=== PATIENT | female | born 1965 | race Caucasian/White ===

== ENCOUNTER 2022-10-11 17:02 | Outpatient (CLI) | payer BC | END 2022-10-11 17:03 | disposition home or self-care (01) | LOC: CSHULT 17:02 | PROVIDERS: ATTEND Orthopaedic Surgery | DX: M79.89 Other specified soft tissue disorders (principal); R22.41 Localized swelling, mass and lump, right lower limb; M71.21 Synovial cyst of popliteal space [Baker], right knee ==

== ENCOUNTER 2023-02-12 14:59 | Inpatient (IN) | payer BC ==
[2023-02-12 15:53] LABS: #Eosinphils 0.1 10x3/uL (0.0-0.5); #Monocytes 1.1 10x3/uL (0.0-1.1); #Neutrophils 10.9 10x3/uL (1.5-8.4); %Basophils 0.2 % (0.0-2.0); %Eosinophils 0.9 % (0.0-6.0); %Lymphocytes 15.1 % (18.0-47.0); %Monocytes 7.7 % (0.0-10.0); %Neutrophils 75.3 % (40.0-75.0); Hemoglobin 8.8 g/dL (12.0-15.5); Mean Corpuscular HGB CONC 35.6 g/dL (32.0-36.0); Mean Corpuscular Hemoglobin 32.6 pg (27.0-33.0); Mean Corpuscular Volume 91.5 fl (81.6-98.3); Mean Platelet Volume 10.4 fl (7.4-10.4); Platelet Count 319 10x3/uL (150-450); RBC Distribution Width 14.6 % (11.5-14.5); White Blood Cell (WBC) Count 14.4 10x3/uL (3.5-10.5)
[2023-02-12 16:03] LABS: ALT (SGPT) 43 U/L (8-55); AST (SGOT) 48 U/L (5-34); Albumin 2.8 g/dL (3.5-5.0); Alkaline Phosphatase 126 U/L (40-110); Anion Gap 20 mmol/L (10-20); BUN (Urea Nitrogen) 26 mg/dL (9.8-20.1); Bilirubin, Total 2.5 mg/dL (0.2-1.2); Calc. Creatinine Clearance 0 mL/min (70-130); Calcium 8.7 mg/dL (7.8-10.44); Carbon Dioxide 25 mmol/L (22-29); Chloride 78 mmol/L (98-107); Estimated GFR 30; Globulin 2.8 g/dL (2.4-3.5); Glucose 158 mg/dL (70-105); Lipase 14 U/L (8-78); Magnesium 1.6 mg/dL (1.6-2.6); Potassium 3.9 mmol/L (3.5-5.1); Protein, Total 5.6 g/dL (6.0-8.3)
[2023-02-12 16:06] LABS: Sodium 119 mmol/L (136-145)
[2023-02-12 16:30] LABS: Acetaminophen Less than 10.0 mcg/mL (10.0-30.0); Alcohol Less than 10 mg/dL (Less than 10); Salicylate Less than 8.0 mg/dL (15.0-30.0)
[2023-02-12] MEDS ORDERED: NOREPINEPHRINE 8 MG/250 ML-D5W 250 ML ONE (17:39)
[2023-02-12] MEDS ORDERED: Lorazepam 2 MG/ML VIAL IM PRN (17:44)
[2023-02-12] MEDS ORDERED: Ondansetron PF 4 MG/2 ML Vial IVP PRN (17:44)
[2023-02-12] MEDS ORDERED: Lorazepam 1 MG TAB PO PRN (17:44)
[2023-02-12] MEDS ORDERED: Acetaminophen 325 MG TAB PO PRN (17:44)
[2023-02-12] MEDS ORDERED: Folic Acid 1 MG TAB PO SCH (18:15)
[2023-02-12] MEDS ORDERED: Multivit, Therapeutic 1 TAB PO SCH (18:15)
[2023-02-12] MEDS: Nicotine 14 MG PATCH TD SCH (18:56)
[2023-02-12] MEDS: Thiamine HCl 200 MG/2 ML VIAL SLOW IVP SCH (18:56)
[2023-02-12] MEDS: Lorazepam 1 MG TAB PO SCH ×2 (18:57→23:39)
[2023-02-12 20:17] LABS: Anion Gap 19 mmol/L (10-20); BUN (Urea Nitrogen) 24 mg/dL (9.8-20.1); Calc. Creatinine Clearance 49 mL/min (70-130); Calcium 8.5 mg/dL (7.8-10.44); Carbon Dioxide 23 mmol/L (22-29); Chloride 82 mmol/L (98-107); Estimated GFR 36; Glucose 171 mg/dL (70-105); Magnesium 1.6 mg/dL (1.6-2.6); Potassium 3.6 mmol/L (3.5-5.1); Sodium 120 mmol/L (136-145)
[2023-02-12] MEDS: Famotidine/PF 20 mg/2ml Vial SLOW IVP SCH (21:42)
[2023-02-12 23:36] LABS: Bilirubin 1+ (Negative); Blood, Urine Negative (Negative); Clarity Clear (Clear); Glucose, Urine (Dipstick) Normal (Negative); Ketone, Urine 5 mg/dL (Negative); Leukocyte 25 (Negative); Nitrite Negative (Negative); Protein, Urine (Dipstick) 15 mg/dl (Neg-Trace)
[2023-02-12 23:46] LABS: Amphetamine Not Detected (NotDetected); Barbiturates Screen Not Detected (NotDetected); Benzodiazepine Screen Not Detected (NotDetected); Cocaine Metabolite Screen Not Detected (NotDetected); Methadone Not Detected (NotDetected); Methamphetamine Not Detected (NotDetected); Opiate Screen Not Detected (NotDetected); Oxycodone Screen Not Detected (NotDetected); Phencyclidine (PCP) Not Detected (NotDetected); THC/Cannabinoid Screen Not Detected (NotDetected); Tricyclic Screen Not Detected (NotDetected)
[2023-02-12 23:53] LABS: CAUTI Indications for Culture Dysuria,urgency,freq; RBC/HPF 0-3 HPF (0-3)
[2023-02-12 23:54] LABS: Bacteria/HPF 1+ HPF (None Seen)
[2023-02-12 23:55] LABS: Anion Gap 17 mmol/L (10-20); BUN (Urea Nitrogen) 23 mg/dL (9.8-20.1); Calc. Creatinine Clearance 56 mL/min (70-130); Calcium 8.5 mg/dL (7.8-10.44); Carbon Dioxide 24 mmol/L (22-29); Chloride 82 mmol/L (98-107); Estimated GFR 42; Glucose 186 mg/dL (70-105); Potassium 3.2 mmol/L (3.5-5.1); Sodium 120 mmol/L (136-145); Urine Culture Reflex No No
[2023-02-13] MEDS ORDERED: Lactated Ringer's 1,000 ML IV SCH ×2 (02:30→09:00)
[2023-02-13] MEDS: Potassium Chloride 20 MEQ in Premix Bag 1 BAG IVPB SCH ×2 (02:47→04:57)
[2023-02-13] MEDS: NOREPINEPHRINE 8 MG/250 ML-D5W 250 ML IVPB SCH ×3 (03:29→17:46)
[2023-02-13 04:22] LABS: #Monocytes 1.5 10x3/uL (0.0-1.1); #Neutrophils 10.5 10x3/uL (1.5-8.4); %Basophils 0.3 % (0.0-2.0); %Eosinophils 0.3 % (0.0-6.0); %Lymphocytes 16.5 % (18.0-47.0); %Monocytes 10.1 % (0.0-10.0); %Neutrophils 71.5 % (40.0-75.0); Hemoglobin 7.6 g/dL (12.0-15.5); Mean Corpuscular HGB CONC 36.4 g/dL (32.0-36.0); Mean Corpuscular Hemoglobin 32.8 pg (27.0-33.0); Mean Corpuscular Volume 90.1 fl (81.6-98.3); Mean Platelet Volume 9.6 fl (7.4-10.4); Platelet Count 306 10x3/uL (150-450); RBC Distribution Width 14.7 % (11.5-14.5); Red Blood Cell (RBC) Count 2.32 10x6/uL (3.90-5.03); White Blood Cell (WBC) Count 14.6 10x3/uL (3.5-10.5)
[2023-02-13] MEDS ORDERED: VANCOMYCIN 1.75 GM/350 ML BAG IVPB SCH (04:30)
[2023-02-13 04:33] LABS: Anion Gap 15 mmol/L (10-20); BUN (Urea Nitrogen) 22 mg/dL (9.8-20.1); Calc. Creatinine Clearance 61 mL/min (70-130); Calcium 8.3 mg/dL (7.8-10.44); Carbon Dioxide 25 mmol/L (22-29); Chloride 83 mmol/L (98-107); Estimated GFR 47; Glucose 216 mg/dL (70-105); Potassium 3.4 mmol/L (3.5-5.1); Sodium 120 mmol/L (136-145)
[2023-02-13] MEDS: Cefepime 2 GM in Sodium Chloride 0.9% 100 ML IVPB SCH ×2 (04:51→17:06)
[2023-02-13] MEDS ORDERED: VANCOMYCIN 1.75 GM, Admixture Fee 1 EACH in Sodium Chloride 0.9% 500 ML IVPB SCH (05:30)
[2023-02-13] MEDS: Lorazepam 1 MG TAB PO SCH ×4 (05:59→23:46)
[2023-02-13] MEDS: Folic Acid 1 MG TAB PO SCH (08:00)
[2023-02-13] MEDS: Famotidine/PF 20 mg/2ml Vial SLOW IVP SCH ×2 (08:00→20:40)
[2023-02-13] MEDS: Multivit, Therapeutic 1 TAB PO SCH (08:01)
[2023-02-13 08:30] LABS: Anion Gap 15 mmol/L (10-20); BUN (Urea Nitrogen) 20 mg/dL (9.8-20.1); Calc. Creatinine Clearance 68 mL/min (70-130); Calcium 8.4 mg/dL (7.8-10.44); Carbon Dioxide 24 mmol/L (22-29); Chloride 85 mmol/L (98-107); Estimated GFR 53; Glucose 194 mg/dL (70-105); Potassium 3.9 mmol/L (3.5-5.1); Sodium 120 mmol/L (136-145)
[2023-02-13 09:12] LABS: ALT (SGPT) 40 U/L (8-55); AST (SGOT) 37 U/L (5-34); Albumin 2.6 g/dL (3.5-5.0); Alkaline Phosphatase 123 U/L (40-110); Bilirubin, Total 1.9 mg/dL (0.2-1.2); Globulin 2.6 g/dL (2.4-3.5); Magnesium 1.8 mg/dL (1.6-2.6); Protein, Total 5.2 g/dL (6.0-8.3)
[2023-02-13 09:16] LABS: Phosphorus 1.3 mg/dL (2.3-4.7)
[2023-02-13] MEDS ORDERED: Potassium Phosphate 30 MMOL in Sodium Chloride 0.9% 250 ML 250 ML IVPB SCH (10:00)
[2023-02-13 10:26] LABS: Iron 62 ug/dL (50-170); Iron Binding Capacity, Total 158 mcg/dL (265-497)
[2023-02-13 13:32] LABS: BUN (Urea Nitrogen) 18 mg/dL (9.8-20.1); Calc. Creatinine Clearance 78 mL/min (70-130); Calcium 8.2 mg/dL (7.8-10.44); Carbon Dioxide 24 mmol/L (22-29); Chloride 84 mmol/L (98-107); Estimated GFR 62; Potassium 4.1 mmol/L (3.5-5.1)
[2023-02-13 14:34] LABS: Anion Gap 14 mmol/L (10-20); Glucose 280 mg/dL (70-105)
[2023-02-13 14:42] LABS: Sodium 118 mmol/L (136-145)
[2023-02-13] MEDS ORDERED: Sodium Chloride 3% 500 ML IVPB SCH (15:30)
[2023-02-13 16:25] LABS: Anion Gap 16 mmol/L (10-20); BUN (Urea Nitrogen) 17 mg/dL (9.8-20.1); Calc. Creatinine Clearance 85 mL/min (70-130); Calcium 8.2 mg/dL (7.8-10.44); Carbon Dioxide 22 mmol/L (22-29); Chloride 85 mmol/L (98-107); Estimated GFR 69; Glucose 223 mg/dL (70-105); Potassium 4.4 mmol/L (3.5-5.1)
[2023-02-13 16:28] LABS: Sodium 119 mmol/L (136-145)
[2023-02-13] MEDS ORDERED: Lorazepam 1 MG TAB PO PRN (17:44)
[2023-02-13] MEDS: Nicotine 14 MG PATCH TD SCH (17:46)
[2023-02-13] MEDS: Thiamine HCl 200 MG/2 ML VIAL SLOW IVP SCH (17:48)
[2023-02-13 19:40] LABS: Anion Gap 15 mmol/L (10-20); BUN (Urea Nitrogen) 17 mg/dL (9.8-20.1); Calc. Creatinine Clearance 86 mL/min (70-130); Calcium 8.3 mg/dL (7.8-10.44); Carbon Dioxide 24 mmol/L (22-29); Chloride 86 mmol/L (98-107); Estimated GFR 70; Glucose 218 mg/dL (70-105); Potassium 4.1 mmol/L (3.5-5.1); Sodium 121 mmol/L (136-145)
[2023-02-13] MEDS: Vancomycin HCl 1 GM in Sodium Chloride 0.9% 250 ML 250 ML IVPB SCH (23:47)
[2023-02-14 01:10] LABS: Anion Gap 15 mmol/L (10-20); BUN (Urea Nitrogen) 15 mg/dL (9.8-20.1); Calc. Creatinine Clearance 94 mL/min (70-130); Calcium 8.3 mg/dL (7.8-10.44); Carbon Dioxide 23 mmol/L (22-29); Chloride 88 mmol/L (98-107); Estimated GFR 78; Glucose 176 mg/dL (70-105); Potassium 3.9 mmol/L (3.5-5.1); Sodium 122 mmol/L (136-145)
[2023-02-14 04:06] LABS: Hemoglobin 7.4 g/dL (12.0-15.5); Mean Corpuscular HGB CONC 35.7 g/dL (32.0-36.0); Mean Corpuscular Hemoglobin 32.5 pg (27.0-33.0); Mean Corpuscular Volume 90.8 fl (81.6-98.3); Mean Platelet Volume 9.1 fl (7.4-10.4); Platelet Count 302 10x3/uL (150-450); RBC Distribution Width 14.9 % (11.5-14.5); Red Blood Cell (RBC) Count 2.28 10x6/uL (3.90-5.03)
[2023-02-14 04:40] LABS: Anion Gap 14 mmol/L (10-20); BUN (Urea Nitrogen) 14 mg/dL (9.8-20.1); Calc. Creatinine Clearance 98 mL/min (70-130); Calcium 8.4 mg/dL (7.8-10.44); Carbon Dioxide 24 mmol/L (22-29); Chloride 88 mmol/L (98-107); Estimated GFR 82; Glucose 163 mg/dL (70-105); Magnesium 1.4 mg/dL (1.6-2.6); Phosphorus 2.2 mg/dL (2.3-4.7); Potassium 3.8 mmol/L (3.5-5.1); Sodium 122 mmol/L (136-145)
[2023-02-14] MEDS: Cefepime 2 GM in Sodium Chloride 0.9% 100 ML IVPB SCH ×2 (05:00→16:51)
[2023-02-14] MEDS: NOREPINEPHRINE 8 MG/250 ML-D5W 250 ML IVPB SCH ×2 (05:04→21:40)
[2023-02-14] MEDS: Lorazepam 1 MG TAB PO SCH ×2 (05:37→12:08)
[2023-02-14] MEDS ORDERED: VANCOMYCIN 1.25 GM, Admixture Fee 1 EACH in Sodium Chloride 0.9% 250 ML 250 ML IVPB SCH (06:00)
[2023-02-14 07:21] LABS: Anion Gap 13 mmol/L (10-20); BUN (Urea Nitrogen) 13 mg/dL (9.8-20.1); Calc. Creatinine Clearance 100 mL/min (70-130); Calcium 8.4 mg/dL (7.8-10.44); Carbon Dioxide 24 mmol/L (22-29); Chloride 89 mmol/L (98-107); Estimated GFR 84; Glucose 158 mg/dL (70-105); Potassium 3.8 mmol/L (3.5-5.1); Sodium 122 mmol/L (136-145)
[2023-02-14] MEDS ORDERED: Sodium Chloride 1 GM TAB PO SCH (10:00)
[2023-02-14] MEDS ORDERED: Multivit, Therapeutic 1 TAB ONE (10:01)
[2023-02-14] MEDS ORDERED: Dextrose 5% in Water 1,000 ML IV PRN (10:02)
[2023-02-14] MEDS ORDERED: Dextrose 50% Abboject 50 ML SYRINGE SLOW IVP PRN (10:02)
[2023-02-14] MEDS: Famotidine/PF 20 mg/2ml Vial SLOW IVP SCH ×2 (10:27→20:30)
[2023-02-14] MEDS: Folic Acid 1 MG TAB PO SCH (10:27)
[2023-02-14] MEDS: Multivit, Therapeutic 1 TAB PO SCH (10:28)
[2023-02-14] MEDS ORDERED: EPOETIN ALFA-EPBX (ESRD) 10,000 UNIT/ML VIAL SC SCH ×2 (10:30→12:00)
[2023-02-14] MEDS ORDERED: Magnesium 2 GM/50 ML(in water) 2 GM in Premix Bag 1 BAG IVPB SCH (10:30)
[2023-02-14] MEDS: HumaLOG 300 UNITS/3 ML VIAL SC PRN ×2 (11:20→20:29)
[2023-02-14] MEDS ORDERED: Polyethylene Glycol 3350 17 GM Packet PO PRN (12:07)
[2023-02-14] MEDS ORDERED: Docusate 100 MG CAP PO PRN (12:07)
[2023-02-14] MEDS ORDERED: Sodium Phosphate 15 MMOL in Sodium Chloride 0.9% 250 ML 250 ML IVPB SCH (13:00)
[2023-02-14] MEDS: Sodium Chloride 1 GM TAB PO SCH ×2 (15:19→20:31)
[2023-02-14 16:47] LABS: Vancomycin, Trough 15.2 ug/mL
[2023-02-14] MEDS: Vancomycin HCl 1 GM in Sodium Chloride 0.9% 250 ML 250 ML IVPB SCH (16:51)
[2023-02-14] MEDS: Lorazepam 0.5 MG TAB PO SCH (17:25)
[2023-02-14] MEDS: Nicotine 14 MG PATCH TD SCH (17:37)
[2023-02-14] MEDS: Thiamine HCl 200 MG/2 ML VIAL SLOW IVP SCH (17:37)
[2023-02-14] MEDS ORDERED: Lorazepam 1 MG TAB PO PRN (17:44)
[2023-02-14 20:19] LABS: Potassium 3.7 mmol/L (3.5-5.1); Sodium 127 mmol/L (136-145)
[2023-02-15] MEDS: Lorazepam 0.5 MG TAB PO SCH ×4 (00:08→18:00)
[2023-02-15] MEDS ORDERED: Cefepime 2 GM VIAL ONE (05:00)
[2023-02-15] MEDS ORDERED: Sodium Chloride 0.9% 100 ML ONE (05:00)
[2023-02-15] MEDS: Cefepime 2 GM in Sodium Chloride 0.9% 100 ML IVPB SCH ×2 (05:01→17:26)
[2023-02-15] MEDS: Sodium Chloride 1 GM TAB PO SCH ×3 (09:03→20:17)
[2023-02-15] MEDS: Multivit, Therapeutic 1 TAB PO SCH (09:04)
[2023-02-15] MEDS: Famotidine/PF 20 mg/2ml Vial SLOW IVP SCH ×2 (09:04→20:17)
[2023-02-15] MEDS: Folic Acid 1 MG TAB PO SCH (09:04)
[2023-02-15 09:36] LABS: Anion Gap 15 mmol/L (10-20); BUN (Urea Nitrogen) 11 mg/dL (9.8-20.1); Calc. Creatinine Clearance 104 mL/min (70-130); Calcium 8.6 mg/dL (7.8-10.44); Carbon Dioxide 22 mmol/L (22-29); Chloride 97 mmol/L (98-107); Estimated GFR 85; Glucose 202 mg/dL (70-105); Potassium 4.1 mmol/L (3.5-5.1); Sodium 130 mmol/L (136-145)
[2023-02-15] MEDS ORDERED: Sodium Chloride 0.9% 250 ML 250 ML ONE (11:38)
[2023-02-15] MEDS: Vancomycin HCl 1 GM in Sodium Chloride 0.9% 250 ML 250 ML IVPB SCH (11:44)
[2023-02-15] MEDS: HumaLOG 300 UNITS/3 ML VIAL SC PRN ×2 (12:05→21:13)
[2023-02-15] MEDS: NOREPINEPHRINE 8 MG/250 ML-D5W 250 ML IVPB SCH (17:27)
[2023-02-15] MEDS ORDERED: Lorazepam 0.5 MG TAB PO PRN (17:44)
[2023-02-15] MEDS: Nicotine 14 MG PATCH TD SCH (18:16)
[2023-02-15] MEDS: Thiamine 100 MG TAB PO SCH (20:17)
[2023-02-16 03:48] LABS: Hemoglobin 7.9 g/dL (12.0-15.5); Mean Corpuscular HGB CONC 34.2 g/dL (32.0-36.0); Mean Corpuscular Hemoglobin 32.6 pg (27.0-33.0); Mean Corpuscular Volume 95.5 fl (81.6-98.3); Mean Platelet Volume 8.9 fl (7.4-10.4); Platelet Count 331 10x3/uL (150-450); RBC Distribution Width 16.4 % (11.5-14.5); Red Blood Cell (RBC) Count 2.42 10x6/uL (3.90-5.03); White Blood Cell (WBC) Count 8.1 10x3/uL (3.5-10.5)
[2023-02-16 03:56] LABS: Anion Gap 14 mmol/L (10-20); BUN (Urea Nitrogen) 12 mg/dL (9.8-20.1); Calc. Creatinine Clearance 102 mL/min (70-130); Calcium 8.4 mg/dL (7.8-10.44); Carbon Dioxide 22 mmol/L (22-29); Chloride 102 mmol/L (98-107); Estimated GFR 84; Glucose 191 mg/dL (70-105); Potassium 3.9 mmol/L (3.5-5.1); Sodium 134 mmol/L (136-145)
[2023-02-16] MEDS: HumaLOG 300 UNITS/3 ML VIAL SC PRN ×2 (04:08→16:11)
[2023-02-16] MEDS: Cefepime 2 GM in Sodium Chloride 0.9% 100 ML IVPB SCH ×2 (04:11→17:27)
[2023-02-16 04:20] LABS: Vancomycin, Trough 18.7 ug/mL
[2023-02-16] MEDS: Vancomycin HCl 1 GM in Sodium Chloride 0.9% 250 ML 250 ML IVPB SCH ×2 (04:47→23:59)
[2023-02-16] MEDS: Sodium Chloride 1 GM TAB PO SCH (08:54)
[2023-02-16] MEDS: Famotidine/PF 20 mg/2ml Vial SLOW IVP SCH ×2 (08:58→21:04)
[2023-02-16] MEDS: Multivit, Therapeutic 1 TAB PO SCH (08:59)
[2023-02-16] MEDS: Folic Acid 1 MG TAB PO SCH (10:01)
[2023-02-16] MEDS: NOREPINEPHRINE 8 MG/250 ML-D5W 250 ML IVPB SCH (15:48)
[2023-02-16] MEDS: Nicotine 14 MG PATCH TD SCH (17:27)
[2023-02-16] MEDS ORDERED: Thiamine HCl 200 MG/2 ML VIAL SLOW IVP SCH (21:00)
[2023-02-16] MEDS: Thiamine HCl 500 MG, Admixture Fee 1 EACH in Sodium Chloride 0.9% 100 ML IVPB SCH (21:04)
[2023-02-16] MEDS: Thiamine 100 MG TAB PO SCH (21:04)
[2023-02-17 03:33] LABS: Hemoglobin 7.3 g/dL (12.0-15.5); MDiff Complete? YES; Mean Corpuscular HGB CONC 33.2 g/dL (32.0-36.0); Mean Corpuscular Hemoglobin 32.3 pg (27.0-33.0); Mean Corpuscular Volume 97.3 fl (81.6-98.3); Mean Platelet Volume 8.7 fl (7.4-10.4); Platelet Count 271 10x3/uL (150-450); RBC Distribution Width 17.4 % (11.5-14.5); Red Blood Cell (RBC) Count 2.26 10x6/uL (3.90-5.03)
[2023-02-17 03:42] LABS: ALT (SGPT) 36 U/L (8-55); AST (SGOT) 38 U/L (5-34); Albumin 2.2 g/dL (3.5-5.0); Alkaline Phosphatase 100 U/L (40-110); Anion Gap 14 mmol/L (10-20); BUN (Urea Nitrogen) 16 mg/dL (9.8-20.1); Bilirubin, Total 0.9 mg/dL (0.2-1.2); Calc. Creatinine Clearance 107 mL/min (70-130); Calcium 8.2 mg/dL (7.8-10.44); Carbon Dioxide 21 mmol/L (22-29); Chloride 105 mmol/L (98-107); Estimated GFR 85; Globulin 2.6 g/dL (2.4-3.5); Glucose 128 mg/dL (70-105); Magnesium 1.4 mg/dL (1.6-2.6); Potassium 3.7 mmol/L (3.5-5.1); Protein, Total 4.8 g/dL (6.0-8.3); Sodium 136 mmol/L (136-145)
[2023-02-17] MEDS: Cefepime 2 GM in Sodium Chloride 0.9% 100 ML IVPB SCH (04:04)
[2023-02-17 04:08] LABS: Lymphocytes 34 % (21-51); Monocytes 10 % (0-10); Neutrophil 56 % (42-75)
[2023-02-17 04:11] LABS: Anisocytosis SLIGHT = 6-15 cells (100X) (0-5/hpf); Hypochromia SLIGHT = 6-15 cells (100X) (0-5/hpf); Macrocytosis SLIGHT = 6-15 cells (100X) (0-5/hpf); Platelet Morphology Comment Appears Adequate; Polychromasia SLIGHT = 2-3 cells (100X) (0-2/hpf)
[2023-02-17 04:12] LABS: Platelet Clumps SLIGHT
[2023-02-17] MEDS ORDERED: methylPREDNISolone 4 mg Tablet PO SCH (08:00)
[2023-02-17] MEDS: Magnesium 2 GM/50 ML(in water) 2 GM in Premix Bag 1 BAG IVPB SCH (08:02)
[2023-02-17] MEDS: Famotidine/PF 20 mg/2ml Vial SLOW IVP SCH ×2 (08:02→20:47)
[2023-02-17] MEDS: Multivit, Therapeutic 1 TAB PO SCH (08:03)
[2023-02-17] MEDS: Folic Acid 1 MG TAB PO SCH (08:03)
[2023-02-17] MEDS: Thiamine HCl 500 MG, Admixture Fee 1 EACH in Sodium Chloride 0.9% 100 ML IVPB SCH ×3 (08:49→20:47)
[2023-02-17] MEDS ORDERED: Electrolyte Replacement Protocol 1 EACH FS SCH (11:15)
[2023-02-17] MEDS: HumaLOG 300 UNITS/3 ML VIAL SC PRN ×2 (12:01→16:39)
[2023-02-17] MEDS: methylPREDNISolone 4 mg Tablet PO SCH ×2 (12:01→18:02)
[2023-02-17 16:10] VITALS: TEMP 97.8
[2023-02-17] MEDS: Nicotine 14 MG PATCH TD SCH (17:31)
[2023-02-18] MEDS: methylPREDNISolone 4 mg Tablet PO SCH ×4 (00:10→18:07)
[2023-02-18] MEDS: HumaLOG 300 UNITS/3 ML VIAL SC PRN ×4 (00:25→16:05)
[2023-02-18 03:56] LABS: #Monocytes 0.9 10x3/uL (0.0-1.1); #Neutrophils 7.6 10x3/uL (1.5-8.4); %Lymphocytes 15.2 % (18.0-47.0); %Monocytes 8.6 % (0.0-10.0); %Neutrophils 75.4 % (40.0-75.0); ALT (SGPT) 34 U/L (8-55); AST (SGOT) 33 U/L (5-34); Albumin 2.3 g/dL (3.5-5.0); Alkaline Phosphatase 101 U/L (40-110); Anion Gap 11 mmol/L (10-20); BUN (Urea Nitrogen) 20 mg/dL (9.8-20.1); Bilirubin, Total 0.7 mg/dL (0.2-1.2); Calc. Creatinine Clearance 113 mL/min (70-130); Calcium 8.3 mg/dL (7.8-10.44); Carbon Dioxide 21 mmol/L (22-29); Chloride 109 mmol/L (98-107); Estimated GFR 92; Globulin 2.7 g/dL (2.4-3.5); Glucose 174 mg/dL (70-105); Hemoglobin 7.1 g/dL (12.0-15.5); Magnesium 2.2 mg/dL (1.6-2.6); Mean Corpuscular HGB CONC 33.5 g/dL (32.0-36.0); Mean Corpuscular Volume 98.6 fl (81.6-98.3); Mean Platelet Volume 8.9 fl (7.4-10.4); Platelet Count 246 10x3/uL (150-450); Potassium 3.7 mmol/L (3.5-5.1); RBC Distribution Width 17.9 % (11.5-14.5); Red Blood Cell (RBC) Count 2.15 10x6/uL (3.90-5.03); Sodium 137 mmol/L (136-145); White Blood Cell (WBC) Count 10.1 10x3/uL (3.5-10.5)
[2023-02-18 04:08] LABS: Phosphorus 1.2 mg/dL (2.3-4.7)
[2023-02-18] MEDS ORDERED: Potassium Phosphate 30 MMOL in Sodium Chloride 0.9% 250 ML 250 ML IVPB SCH (04:30)
[2023-02-18] MEDS: Multivit, Therapeutic 1 TAB PO SCH (09:16)
[2023-02-18] MEDS: Famotidine/PF 20 mg/2ml Vial SLOW IVP SCH (09:17)
[2023-02-18] MEDS: Folic Acid 1 MG TAB PO SCH (09:18)
[2023-02-18] MEDS: Thiamine HCl 500 MG, Admixture Fee 1 EACH in Sodium Chloride 0.9% 100 ML IVPB SCH ×3 (09:18→21:00)
[2023-02-18] MEDS: PHOS-NAK 1 PKT PACK PO SCH ×3 (09:42→21:00)
[2023-02-18] MEDS: Nicotine 14 MG PATCH TD SCH (18:06)
[2023-02-19] MEDS: methylPREDNISolone 4 mg Tablet PO SCH ×3 (02:21→13:17)
[2023-02-19 03:39] LABS: #Neutrophils 8.6 10x3/uL (1.5-8.4); %Basophils 0.1 % (0.0-2.0); %Eosinophils 0.1 % (0.0-6.0); %Monocytes 8.1 % (0.0-10.0); Hemoglobin 7.8 g/dL (12.0-15.5); Mean Corpuscular HGB CONC 32.1 g/dL (32.0-36.0); Mean Corpuscular Hemoglobin 32.6 pg (27.0-33.0); Mean Corpuscular Volume 101.7 fl (81.6-98.3); Mean Platelet Volume 8.8 fl (7.4-10.4); Platelet Count 241 10x3/uL (150-450); RBC Distribution Width 18.4 % (11.5-14.5); Red Blood Cell (RBC) Count 2.39 10x6/uL (3.90-5.03); White Blood Cell (WBC) Count 12.1 10x3/uL (3.5-10.5)
[2023-02-19 03:52] LABS: ALT (SGPT) 36 U/L (8-55); AST (SGOT) 36 U/L (5-34); Albumin 2.5 g/dL (3.5-5.0); Alkaline Phosphatase 97 U/L (40-110); Anion Gap 11 mmol/L (10-20); BUN (Urea Nitrogen) 19 mg/dL (9.8-20.1); Bilirubin, Total 0.7 mg/dL (0.2-1.2); Calc. Creatinine Clearance 120 mL/min (70-130); Calcium 8.4 mg/dL (7.8-10.44); Carbon Dioxide 22 mmol/L (22-29); Chloride 110 mmol/L (98-107); Estimated GFR 98; Globulin 2.8 g/dL (2.4-3.5); Glucose 122 mg/dL (70-105); Magnesium 1.9 mg/dL (1.6-2.6); Phosphorus 2.9 mg/dL (2.3-4.7); Potassium 4.6 mmol/L (3.5-5.1); Protein, Total 5.3 g/dL (6.0-8.3); Sodium 138 mmol/L (136-145)
[2023-02-19 06:26] VITALS: BMI 33.7
[2023-02-19] MEDS ORDERED: Magnesium 2 GM/50 ML(in water) 2 GM in Premix Bag 1 BAG IVPB SCH (08:00)
[2023-02-19] MEDS: Folic Acid 1 MG TAB PO SCH (08:16)
[2023-02-19] MEDS: Multivit, Therapeutic 1 TAB PO SCH (08:17)
[2023-02-19] MEDS: PHOS-NAK 1 PKT PACK PO SCH ×2 (08:17→15:30)
[2023-02-19] MEDS: Thiamine HCl 500 MG, Admixture Fee 1 EACH in Sodium Chloride 0.9% 100 ML IVPB SCH ×2 (10:39→15:30)
[2023-02-19 10:43] VITALS: BP 154/101
[2023-02-19] MEDS: HumaLOG 300 UNITS/3 ML VIAL SC PRN (11:54)
== END 2023-02-19 16:00 | DRG 643 ==
LOC: CSHERS 14:59 → CSHIMCU 17:56
PROVIDERS: ADMIT Internal Medicine; ATTEND Family Medicine
PROC: 02HV33Z Insertion of Infusion Device into Superior Vena Cava, Percutaneous Approach (ICD-10-PCS; principal; 2023-02-12)
PROC: B548ZZA Ultrasonography of Superior Vena Cava, Guidance (ICD-10-PCS; 2023-02-12)
PROC: 3E033XZ Introduction of Vasopressor into Peripheral Vein, Percutaneous Approach (ICD-10-PCS; 2023-02-14)
PROC: 4A10X4Z Monitoring of Central Nervous Electrical Activity, External Approach (ICD-10-PCS; 2023-02-17)
DX: E27.40 Unspecified adrenocortical insufficiency (principal); G93.41 Metabolic encephalopathy; R57.1 Hypovolemic shock; E87.1 Hypo-osmolality and hyponatremia; N17.9 Acute kidney failure, unspecified; E44.1 Mild protein-calorie malnutrition; F17.210 Nicotine dependence, cigarettes, uncomplicated; E66.9 Obesity, unspecified; E83.42 Hypomagnesemia; D72.829 Elevated white blood cell count, unspecified; E87.6 Hypokalemia; F10.20 Alcohol dependence, uncomplicated; N18.30 Chronic kidney disease, stage 3 unspecified; I12.9 Hypertensive chronic kidney disease with stage 1 through stage 4 chronic kidney disease, or unspecified chronic kidney disease; D63.1 Anemia in chronic kidney disease; Z88.0 Allergy status to penicillin; Z79.84 Long term (current) use of oral hypoglycemic drugs; Z79.899 Other long term (current) drug therapy; Z98.890 Other specified postprocedural states; Z68.33 Body mass index [BMI] 33.0-33.9, adult
CPT/HCPCS: 36415; 36416; 36556; 70450; 70551; 71045; 76705; 80048; 80053; 80202; 80306; 80307; 81001; 82024; 82088; 82140; 82533; 82607; 82728; 83540; 83550; 83605; 83690; 83735; 83880; 83930; 83935; 84100; 84244; 84300; 84443; 84484; 85025; 85027; 87040; 87081; 87086; 93005; 93306; 94760; 94762; 95819; 95957; 96361; 96365; J0692; J1650; J1815; J2597; J3370; J3411; J3475; J3480; J3490; J7030; J7050; J7120; J7131; J7509; Q5105; S0028

== ENCOUNTER 2023-02-21 08:10 | Inpatient (IN) | payer BC ==
[2023-02-21] MEDS ORDERED: Ketorolac Tromethamine 30 MG/ML VIAL ONE (09:00)
[2023-02-21 10:00] LABS: ALT (SGPT) 38 U/L (8-55); AST (SGOT) 50 U/L (5-34); Acetaminophen Less than 10.0 mcg/mL (10.0-30.0); Albumin 2.8 g/dL (3.5-5.0); Alcohol Less than 10 mg/dL (Less than 10); Alkaline Phosphatase 93 U/L (40-110); Anion Gap 15 mmol/L (10-20); BUN (Urea Nitrogen) 15 mg/dL (9.8-20.1); Calc. Creatinine Clearance 0 mL/min (70-130); Calcium 8.7 mg/dL (7.8-10.44); Carbon Dioxide 18 mmol/L (22-29); Chloride 108 mmol/L (98-107); Estimated GFR 89; Globulin 2.6 g/dL (2.4-3.5); Glucose 99 mg/dL (70-105); Potassium 4.4 mmol/L (3.5-5.1); Protein, Total 5.4 g/dL (6.0-8.3); Salicylate Less than 8.0 mg/dL (15.0-30.0); Sodium 137 mmol/L (136-145)
[2023-02-21 10:43] LABS: #Eosinphils 0.1 10x3/uL (0.0-0.5); #Monocytes 0.7 10x3/uL (0.0-1.1); #Neutrophils 7.9 10x3/uL (1.5-8.4); %Basophils 0.2 % (0.0-2.0); %Eosinophils 0.8 % (0.0-6.0); %Monocytes 6.3 % (0.0-10.0); Hemoglobin 8.7 g/dL (12.0-15.5); Mean Corpuscular HGB CONC 31.5 g/dL (32.0-36.0); Mean Corpuscular Volume 104.5 fl (81.6-98.3); Mean Platelet Volume 9.1 fl (7.4-10.4); Platelet Count 196 10x3/uL (150-450); RBC Distribution Width 19.2 % (11.5-14.5); Red Blood Cell (RBC) Count 2.64 10x6/uL (3.90-5.03); White Blood Cell (WBC) Count 11.3 10x3/uL (3.5-10.5)
[2023-02-21] MEDS ORDERED: Morphine 4 MG/ML VIAL ONE (11:05)
[2023-02-21 12:06] LABS: Macrocytosis SLIGHT = 6-15 cells (100X) (0-5/hpf)
[2023-02-21 12:07] LABS: Hypochromia SLIGHT = 6-15 cells (100X) (0-5/hpf); Polychromasia SLIGHT = 2-3 cells (100X) (0-2/hpf)
[2023-02-21 12:08] LABS: Platelet Morphology Comment Appears Adequate
[2023-02-21] MEDS ORDERED: Guaifenesin DM 100-10/5 ML UDCUP PO PRN (12:12)
[2023-02-21] MEDS ORDERED: Senokot S 8.6-50 MG TAB PO PRN (12:12)
[2023-02-21] MEDS ORDERED: Ondansetron ODT 4 MG TAB PO PRN (12:12)
[2023-02-21] MEDS ORDERED: Calcium Carbonate 500 MG ChewTAB PO PRN (12:12)
[2023-02-21] MEDS ORDERED: Acetaminophen 325 MG TAB PO PRN (12:12)
[2023-02-21] MEDS ORDERED: Ondansetron PF 4 MG/2 ML Vial IVP PRN (12:12)
[2023-02-21] MEDS ORDERED: Nicotine 21 MG PATCH TD SCH (12:15)
[2023-02-21] MEDS ORDERED: Cyclobenzaprine 10 MG TAB PO PRN (13:00)
[2023-02-21] MEDS ORDERED: Dexamethasone 12 MG in Sodium Chloride 0.9% 50 ML IVPB SCH (13:00)
[2023-02-21] MEDS ORDERED: HYDROcodone/Acetaminophen 10/325 mg Tablet ONE (13:30)
[2023-02-21] MEDS ORDERED: Nicotine 21 MG PATCH ONE (13:39)
[2023-02-21] MEDS: HYDROcodone/Acetaminophen 10/325 mg Tablet PO PRN ×2 (13:50→20:10)
[2023-02-21] MEDS ORDERED: Iopamidol 370 76% 100 ML VIAL ONE (13:56)
[2023-02-21] MEDS ORDERED: Thiamine HCl 200 MG/2 ML VIAL IVPB SCH (15:00)
[2023-02-21] MEDS ORDERED: Ventolin HFA Inhaler 60 PUFF INHALER INH PRN (15:39)
[2023-02-21] MEDS ORDERED: Dexamethasone 20 MG/5 ML VIAL SLOW IVP SCH (15:45)
[2023-02-21] MEDS: Lactated Ringer's 1,000 ML IV SCH (16:51)
[2023-02-21] MEDS: Gabapentin 100 MG CAP PO SCH ×2 (16:51→20:12)
[2023-02-21] MEDS: PHOS-NAK 1 PKT PACK PO SCH ×2 (16:52→20:12)
[2023-02-21] MEDS ORDERED: Rosuvastatin 10 MG TAB PO SCH (21:00)
[2023-02-22] MEDS: Lactated Ringer's 1,000 ML IV SCH ×2 (01:05→12:58)
[2023-02-22 05:57] LABS: #Monocytes 0.3 10x3/uL (0.0-1.1); #Neutrophils 7.7 10x3/uL (1.5-8.4); %Lymphocytes 11.3 % (18.0-47.0); Hemoglobin 7.8 g/dL (12.0-15.5); Mean Corpuscular HGB CONC 31.6 g/dL (32.0-36.0); Mean Corpuscular Hemoglobin 32.6 pg (27.0-33.0); Mean Corpuscular Volume 103.3 fl (81.6-98.3); Mean Platelet Volume 9.2 fl (7.4-10.4); Platelet Count 186 10x3/uL (150-450); RBC Distribution Width 18.7 % (11.5-14.5); Red Blood Cell (RBC) Count 2.39 10x6/uL (3.90-5.03); White Blood Cell (WBC) Count 9.1 10x3/uL (3.5-10.5)
[2023-02-22 06:14] LABS: ALT (SGPT) 44 U/L (8-55); AST (SGOT) 46 U/L (5-34); Albumin 2.5 g/dL (3.5-5.0); Alkaline Phosphatase 91 U/L (40-110); Anion Gap 15 mmol/L (10-20); BUN (Urea Nitrogen) 13 mg/dL (9.8-20.1); Bilirubin, Total 0.8 mg/dL (0.2-1.2); Calc. Creatinine Clearance 124 mL/min (70-130); Calcium 8.6 mg/dL (7.8-10.44); Carbon Dioxide 17 mmol/L (22-29); Chloride 109 mmol/L (98-107); Estimated GFR 100; Globulin 2.7 g/dL (2.4-3.5); Potassium 4.6 mmol/L (3.5-5.1); Protein, Total 5.2 g/dL (6.0-8.3); Sodium 136 mmol/L (136-145)
[2023-02-22 06:16] LABS: Glucose 188 mg/dL (70-105)
[2023-02-22] MEDS: Multivit, Therapeutic 1 TAB PO SCH (08:25)
[2023-02-22] MEDS: Gabapentin 100 MG CAP PO SCH ×2 (08:25→14:50)
[2023-02-22] MEDS: PHOS-NAK 1 PKT PACK PO SCH ×3 (08:25→22:02)
[2023-02-22] MEDS: Ferrous Sulfate 325 MG TAB PO SCH (08:25)
[2023-02-22] MEDS: Thiamine 100 MG TAB PO SCH (08:25)
[2023-02-22] MEDS: Dexamethasone 4 MG TAB PO SCH (08:25)
[2023-02-22] MEDS: HYDROcodone/Acetaminophen 10/325 mg Tablet PO PRN ×2 (10:09→14:43)
[2023-02-22] MEDS ORDERED: Lorazepam 1 MG TAB PO PRN (10:35)
[2023-02-22] MEDS ORDERED: Electrolyte Replacement Protocol 1 EACH FS SCH ×2 (10:45→16:00)
[2023-02-22 14:31] LABS: Anion Gap 14 mmol/L (10-20); BUN (Urea Nitrogen) 13 mg/dL (9.8-20.1); Calc. Creatinine Clearance 114 mL/min (70-130); Calcium 8.5 mg/dL (7.8-10.44); Carbon Dioxide 18 mmol/L (22-29); Chloride 109 mmol/L (98-107); Estimated GFR 90; Glucose 155 mg/dL (70-105); Potassium 4.3 mmol/L (3.5-5.1); Sodium 137 mmol/L (136-145)
[2023-02-22] MEDS: Nicotine 14 MG PATCH TD PRN (14:56)
[2023-02-22] MEDS ORDERED: Gabapentin 300 MG CAP PO SCH (16:00)
[2023-02-22] MEDS ORDERED: Cyclobenzaprine 10 MG TAB PO SCH ×2 (16:00→21:00)
[2023-02-22] MEDS ORDERED: Magnesium 2 GM/50 ML(in water) 2 GM in Premix Bag 1 BAG IVPB SCH (16:45)
[2023-02-22] MEDS ORDERED: Cyanocobalamin (Vitamin B-12) 1,000 MCG TAB PO SCH (21:00)
[2023-02-22] MEDS: Senokot S 8.6-50 MG TAB PO SCH (22:01)
[2023-02-22] MEDS: Losartan 25 MG TAB PO SCH (22:02)
[2023-02-22] MEDS: Sodium Bicarbonate Tab 325 MG TAB PO SCH (22:02)
[2023-02-22] MEDS: Folic Acid 1 MG TAB PO SCH (22:02)
[2023-02-22] MEDS: traZODone HCl 50 MG TAB PO SCH (22:04)
[2023-02-22] MEDS: Cyclobenzaprine 10 MG TAB PO SCH (22:05)
[2023-02-23 06:28] LABS: Anion Gap 12 mmol/L (10-20); BUN (Urea Nitrogen) 12 mg/dL (9.8-20.1); Calc. Creatinine Clearance 126 mL/min (70-130); Calcium 8.3 mg/dL (7.8-10.44); Carbon Dioxide 20 mmol/L (22-29); Chloride 109 mmol/L (98-107); Estimated GFR 100; Glucose 140 mg/dL (70-105); Magnesium 2.1 mg/dL (1.6-2.6); Phosphorus 3.6 mg/dL (2.3-4.7); Potassium 4.4 mmol/L (3.5-5.1); Sodium 137 mmol/L (136-145)
[2023-02-23 07:04] LABS: #Monocytes 0.8 10x3/uL (0.0-1.1); %Basophils 0.1 % (0.0-2.0); %Eosinophils 0.1 % (0.0-6.0); %Monocytes 4.6 % (0.0-10.0); %Neutrophils 83.9 % (40.0-75.0); Hemoglobin 7.4 g/dL (12.0-15.5); Mean Corpuscular HGB CONC 31.8 g/dL (32.0-36.0); Mean Corpuscular Hemoglobin 32.3 pg (27.0-33.0); Mean Corpuscular Volume 101.7 fl (81.6-98.3); Mean Platelet Volume 9.3 fl (7.4-10.4); Platelet Count 151 10x3/uL (150-450); RBC Distribution Width 19.4 % (11.5-14.5); Red Blood Cell (RBC) Count 2.29 10x6/uL (3.90-5.03); White Blood Cell (WBC) Count 16.7 10x3/uL (3.5-10.5)
[2023-02-23 07:45] LABS: Anisocytosis SLIGHT = 6-15 cells (100X) (0-5/hpf); Hypochromia SLIGHT = 6-15 cells (100X) (0-5/hpf); Macrocytosis SLIGHT = 6-15 cells (100X) (0-5/hpf); Microcytosis SLIGHT = 6-15 cells (100X) (0-5/hpf)
[2023-02-23 07:46] LABS: Platelet Morphology Comment Appears Adequate
[2023-02-23] MEDS ORDERED: Gabapentin 300 MG CAP PO SCH (09:00)
[2023-02-23] MEDS: PHOS-NAK 1 PKT PACK PO SCH ×3 (09:10→20:26)
[2023-02-23] MEDS: Sodium Bicarbonate Tab 325 MG TAB PO SCH ×2 (09:11→20:27)
[2023-02-23] MEDS: Thiamine 100 MG TAB PO SCH (09:12)
[2023-02-23] MEDS: Losartan 25 MG TAB PO SCH ×2 (09:12→20:27)
[2023-02-23] MEDS: Senokot S 8.6-50 MG TAB PO SCH ×2 (09:12→21:39)
[2023-02-23] MEDS: Dexamethasone 4 MG TAB PO SCH (09:13)
[2023-02-23] MEDS: Cyclobenzaprine 10 MG TAB PO SCH ×3 (09:13→20:29)
[2023-02-23] MEDS: Multivit, Therapeutic 1 TAB PO SCH (09:13)
[2023-02-23] MEDS: Gabapentin 300 MG CAP PO SCH ×3 (09:14→20:27)
[2023-02-23] MEDS: Ferrous Sulfate 325 MG TAB PO SCH (09:15)
[2023-02-23 14:05] LABS: Platelet Count 158 10x3/uL (150-450)
[2023-02-23 14:11] LABS: Bilirubin Neg (Negative); Blood, Urine 250 (Negative); Clarity Clear (Clear); Glucose, Urine (Dipstick) Normal (Negative); Ketone, Urine Negative (Negative); Leukocyte 25 (Negative); Nitrite Negative (Negative); Protein, Urine (Dipstick) Negative (Neg-Trace); Specific Gravity, Urine 1.005 (1.005-1.030); Urobilinogen Normal mg/dL (Less than 2)
[2023-02-23 14:25] LABS: Bacteria/HPF 1+ HPF (None Seen); Oval Fat Bodies/HPF Rare HPF (None Seen); RBC/HPF 0-3 HPF (0-3); WBC/HPF 0-3 HPF (0-3); Yeast-Budding 1+ HPF (None Seen)
[2023-02-23] MEDS: Folic Acid 1 MG TAB PO SCH (20:28)
[2023-02-23] MEDS: traZODone HCl 50 MG TAB PO SCH (20:28)
[2023-02-24 05:22] LABS: #Monocytes 0.7 10x3/uL (0.0-1.1); #Neutrophils 10.8 10x3/uL (1.5-8.4); %Lymphocytes 12.9 % (18.0-47.0); %Monocytes 5.5 % (0.0-10.0); ALT (SGPT) 68 U/L (8-55); AST (SGOT) 185 U/L (5-34); Albumin 2.5 g/dL (3.5-5.0); Alkaline Phosphatase 81 U/L (40-110); Anion Gap 11 mmol/L (10-20); BUN (Urea Nitrogen) 12 mg/dL (9.8-20.1); Bilirubin, Total 0.8 mg/dL (0.2-1.2); Calc. Creatinine Clearance 126 mL/min (70-130); Calcium 8.7 mg/dL (7.8-10.44); Carbon Dioxide 24 mmol/L (22-29); Chloride 110 mmol/L (98-107); Estimated GFR 100; Globulin 2.5 g/dL (2.4-3.5); Glucose 152 mg/dL (70-105); Hemoglobin 7.7 g/dL (12.0-15.5); Mean Corpuscular HGB CONC 32.9 g/dL (32.0-36.0); Mean Corpuscular Hemoglobin 32.9 pg (27.0-33.0); Mean Platelet Volume 9.3 fl (7.4-10.4); Platelet Count 137 10x3/uL (150-450); Potassium 4.5 mmol/L (3.5-5.1); Red Blood Cell (RBC) Count 2.34 10x6/uL (3.90-5.03); Sodium 140 mmol/L (136-145); White Blood Cell (WBC) Count 13.4 10x3/uL (3.5-10.5)
[2023-02-24] MEDS ORDERED: Acetaminophen 325 MG TAB PO PRN (08:48)
[2023-02-24] MEDS: Dexamethasone 4 MG TAB PO SCH (09:15)
[2023-02-24] MEDS: Nicotine 14 MG PATCH TD PRN (09:15)
[2023-02-24] MEDS: Ferrous Sulfate 325 MG TAB PO SCH (09:15)
[2023-02-24] MEDS: Cyclobenzaprine 10 MG TAB PO SCH ×3 (09:16→20:53)
[2023-02-24] MEDS: Senokot S 8.6-50 MG TAB PO SCH ×2 (09:16→20:59)
[2023-02-24] MEDS: Losartan 25 MG TAB PO SCH ×2 (09:16→20:54)
[2023-02-24] MEDS: Multivit, Therapeutic 1 TAB PO SCH (09:17)
[2023-02-24] MEDS: Sodium Bicarbonate Tab 325 MG TAB PO SCH (09:17)
[2023-02-24] MEDS: PHOS-NAK 1 PKT PACK PO SCH ×3 (09:17→20:55)
[2023-02-24] MEDS: Gabapentin 300 MG CAP PO SCH ×3 (09:17→20:54)
[2023-02-24] MEDS: Thiamine 100 MG TAB PO SCH (09:17)
[2023-02-24] MEDS ORDERED: HYDROcodone/Acetaminophen 5/325 mg Tablet PO PRN (10:19)
[2023-02-24] MEDS: traZODone HCl 50 MG TAB PO SCH (20:54)
[2023-02-24] MEDS: Folic Acid 1 MG TAB PO SCH (20:54)
[2023-02-25] MEDS: Senokot S 8.6-50 MG TAB PO SCH ×3 (08:54→23:22)
[2023-02-25] MEDS: Nicotine 14 MG PATCH TD PRN (09:02)
[2023-02-25] MEDS: Gabapentin 300 MG CAP PO SCH ×3 (09:03→23:21)
[2023-02-25] MEDS: Multivit, Therapeutic 1 TAB PO SCH (09:03)
[2023-02-25] MEDS: Thiamine 100 MG TAB PO SCH (09:03)
[2023-02-25] MEDS: Dexamethasone 4 MG TAB PO SCH (09:04)
[2023-02-25] MEDS: Ferrous Sulfate 325 MG TAB PO SCH (09:05)
[2023-02-25] MEDS: Cyclobenzaprine 10 MG TAB PO SCH ×3 (09:05→23:20)
[2023-02-25] MEDS: Losartan 25 MG TAB PO SCH ×2 (09:05→23:19)
[2023-02-25] MEDS: PHOS-NAK 1 PKT PACK PO SCH ×3 (09:06→23:22)
[2023-02-25] MEDS: Folic Acid 1 MG TAB PO SCH (23:20)
[2023-02-25] MEDS: traZODone HCl 50 MG TAB PO SCH (23:20)
[2023-02-26 07:11] LABS: #Monocytes 0.9 10x3/uL (0.0-1.1); #Neutrophils 12.3 10x3/uL (1.5-8.4); %Basophils 0.1 % (0.0-2.0); %Lymphocytes 11.3 % (18.0-47.0); %Monocytes 5.9 % (0.0-10.0); Hemoglobin 8.6 g/dL (12.0-15.5); Mean Corpuscular HGB CONC 32.3 g/dL (32.0-36.0); Mean Corpuscular Hemoglobin 32.8 pg (27.0-33.0); Mean Corpuscular Volume 101.5 fl (81.6-98.3); Mean Platelet Volume 9.6 fl (7.4-10.4); Platelet Count 154 10x3/uL (150-450); RBC Distribution Width 18.6 % (11.5-14.5); Red Blood Cell (RBC) Count 2.62 10x6/uL (3.90-5.03)
[2023-02-26 07:37] LABS: Albumin 2.7 g/dL (3.5-5.0); Anion Gap 11 mmol/L (10-20); BUN (Urea Nitrogen) 13 mg/dL (9.8-20.1); Bilirubin, Total 0.9 mg/dL (0.2-1.2); Calc. Creatinine Clearance 128 mL/min (70-130); Calcium 8.9 mg/dL (7.8-10.44); Carbon Dioxide 26 mmol/L (22-29); Chloride 107 mmol/L (98-107); Estimated GFR 100; Globulin 2.7 g/dL (2.4-3.5); Glucose 157 mg/dL (70-105); Potassium 4.3 mmol/L (3.5-5.1); Protein, Total 5.4 g/dL (6.0-8.3); Sodium 140 mmol/L (136-145)
[2023-02-26 07:38] LABS: ALT (SGPT) 85 U/L (8-55); AST (SGOT) 161 U/L (5-34); Alkaline Phosphatase 93 U/L (40-110)
[2023-02-26] MEDS: Gabapentin 300 MG CAP PO SCH ×3 (08:58→21:27)
[2023-02-26] MEDS: Multivit, Therapeutic 1 TAB PO SCH (09:00)
[2023-02-26] MEDS: Cyclobenzaprine 10 MG TAB PO SCH ×3 (09:00→21:28)
[2023-02-26] MEDS: Thiamine 100 MG TAB PO SCH (09:02)
[2023-02-26] MEDS: Losartan 25 MG TAB PO SCH ×2 (09:02→21:28)
[2023-02-26] MEDS: Ferrous Sulfate 325 MG TAB PO SCH (09:06)
[2023-02-26] MEDS: Senokot S 8.6-50 MG TAB PO SCH ×2 (09:08→21:30)
[2023-02-26] MEDS: PHOS-NAK 1 PKT PACK PO SCH ×3 (09:08→21:28)
[2023-02-26] MEDS: Dexamethasone 4 MG TAB PO SCH (09:08)
[2023-02-26] MEDS ORDERED: Iopamidol 370 76% 100 ML VIAL ONE (09:18)
[2023-02-26] MEDS ORDERED: Nitroglycerin 2% Ointment 1 INCH/1 GM Packet TOP PRN (18:34)
[2023-02-26 19:37] LABS: Hemoglobin 8.8 g/dL (12.0-15.5); Platelet Count 152 10x3/uL (150-450)
[2023-02-26] MEDS: Heparin 10,000 UNITS/ 10 ML VIAL SLOW IVP SCH (19:55)
[2023-02-26] MEDS: Heparin 25,000 units/D5W 500 ML IVPB SCH (19:56)
[2023-02-26] MEDS ORDERED: Aspirin 325 MG TAB PO SCH (20:00)
[2023-02-26] MEDS: traZODone HCl 50 MG TAB PO SCH (21:28)
[2023-02-26] MEDS: Atorvastatin Calcium 40 MG TAB PO SCH (21:28)
[2023-02-26] MEDS: Folic Acid 1 MG TAB PO SCH (21:28)
[2023-02-26] MEDS: Diclofenac 1% 100 GM GEL TP SCH (21:29)
[2023-02-27 02:51] LABS: #Monocytes 0.9 10x3/uL (0.0-1.1); #Neutrophils 16.5 10x3/uL (1.5-8.4); %Basophils 0.1 % (0.0-2.0); %Lymphocytes 9.6 % (18.0-47.0); %Monocytes 4.5 % (0.0-10.0); %Neutrophils 84.9 % (40.0-75.0); Hemoglobin 8.5 g/dL (12.0-15.5); Mean Corpuscular HGB CONC 32.1 g/dL (32.0-36.0); Mean Corpuscular Hemoglobin 32.7 pg (27.0-33.0); Mean Corpuscular Volume 101.9 fl (81.6-98.3); Platelet Count 146 10x3/uL (150-450); RBC Distribution Width 18.6 % (11.5-14.5); White Blood Cell (WBC) Count 19.5 10x3/uL (3.5-10.5)
[2023-02-27 03:07] LABS: ALT (SGPT) 86 U/L (8-55); AST (SGOT) 136 U/L (5-34); Albumin 2.7 g/dL (3.5-5.0); Alkaline Phosphatase 97 U/L (40-110); Anion Gap 18 mmol/L (10-20); BUN (Urea Nitrogen) 14 mg/dL (9.8-20.1); Bilirubin, Total 0.8 mg/dL (0.2-1.2); Calc. Creatinine Clearance 116 mL/min (70-130); Calcium 8.8 mg/dL (7.8-10.44); Carbon Dioxide 22 mmol/L (22-29); Cardiac Risk 2.8 (Less than 4.5); Chloride 105 mmol/L (98-107); Cholesterol 102 mg/dl (< 200 Desired); Estimated GFR 92; Globulin 2.8 g/dL (2.4-3.5); Glucose 196 mg/dL (70-105); HDL Cholesterol 36 mg/dL (>60 Neg Risk); LDL Cholesterol, Calculated 52 mg/dL; Potassium 4.6 mmol/L (3.5-5.1); Protein, Total 5.5 g/dL (6.0-8.3); Sodium 140 mmol/L (136-145); Triglycerides 70 mg/dL (Less than 150)
[2023-02-27] MEDS: Heparin 10,000 UNITS/ 10 ML VIAL SLOW IVP SCH (03:18)
[2023-02-27] MEDS: Morphine 2 MG/ML VIAL SLOW IVP PRN (06:25)
[2023-02-27] MEDS: Losartan 25 MG TAB PO SCH ×2 (08:13→23:07)
[2023-02-27] MEDS: Aspirin 81 mg Enteric Coated Tablet PO SCH (08:13)
[2023-02-27] MEDS: Cyclobenzaprine 10 MG TAB PO SCH ×3 (08:14→23:06)
[2023-02-27] MEDS: Multivit, Therapeutic 1 TAB PO SCH (08:14)
[2023-02-27] MEDS: Gabapentin 300 MG CAP PO SCH ×3 (08:16→23:05)
[2023-02-27] MEDS: Ferrous Sulfate 325 MG TAB PO SCH (08:18)
[2023-02-27] MEDS: Thiamine 100 MG TAB PO SCH (08:19)
[2023-02-27] MEDS: Senokot S 8.6-50 MG TAB PO SCH ×2 (08:37→23:08)
[2023-02-27] MEDS: PHOS-NAK 1 PKT PACK PO SCH ×3 (08:41→23:08)
[2023-02-27] MEDS: Diclofenac 1% 100 GM GEL TP SCH ×4 (10:51→23:44)
[2023-02-27] MEDS: Nicotine 14 MG PATCH TD PRN (12:22)
[2023-02-27] MEDS ORDERED: Communication Order-Pharmacy FS SCH (14:15)
[2023-02-27 16:12] LABS: Hep C IgG Ab Non-Reactive S/CO (NonReactive)
[2023-02-27] MEDS: Sodium Chloride 0.9% 1,000 ML IV SCH (16:12)
[2023-02-27] MEDS: Heparin 25,000 units/D5W 500 ML IVPB SCH (19:57)
[2023-02-27] MEDS: Atorvastatin Calcium 40 MG TAB PO SCH (23:07)
[2023-02-27] MEDS: Folic Acid 1 MG TAB PO SCH (23:07)
[2023-02-27] MEDS: traZODone HCl 50 MG TAB PO SCH (23:08)
[2023-02-28] MEDS: Sodium Chloride 0.9% 1,000 ML IV SCH ×3 (02:06→20:47)
[2023-02-28 05:02] LABS: #Eosinphils 0.1 10x3/uL (0.0-0.5); #Monocytes 0.6 10x3/uL (0.0-1.1); #Neutrophils 14.3 10x3/uL (1.5-8.4); %Basophils 0.1 % (0.0-2.0); %Eosinophils 0.5 % (0.0-6.0); %Lymphocytes 14.9 % (18.0-47.0); %Monocytes 3.6 % (0.0-10.0); %Neutrophils 80.3 % (40.0-75.0); Mean Corpuscular Hemoglobin 32.4 pg (27.0-33.0); Mean Corpuscular Volume 104.3 fl (81.6-98.3); Mean Platelet Volume 9.9 fl (7.4-10.4); Platelet Count 189 10x3/uL (150-450); RBC Distribution Width 18.5 % (11.5-14.5); Red Blood Cell (RBC) Count 2.78 10x6/uL (3.90-5.03); White Blood Cell (WBC) Count 17.8 10x3/uL (3.5-10.5)
[2023-02-28] MEDS: Gabapentin 300 MG CAP PO SCH ×3 (05:23→20:45)
[2023-02-28] MEDS: Multivit, Therapeutic 1 TAB PO SCH (05:23)
[2023-02-28] MEDS: Ferrous Sulfate 325 MG TAB PO SCH (05:23)
[2023-02-28] MEDS: Aspirin 81 mg Enteric Coated Tablet PO SCH (05:23)
[2023-02-28 05:25] LABS: ALT (SGPT) 84 U/L (8-55); AST (SGOT) 136 U/L (5-34); Albumin 2.7 g/dL (3.5-5.0); Alkaline Phosphatase 107 U/L (40-110); Anion Gap 15 mmol/L (10-20); BUN (Urea Nitrogen) 14 mg/dL (9.8-20.1); Calc. Creatinine Clearance 122 mL/min (70-130); Calcium 8.6 mg/dL (7.8-10.44); Carbon Dioxide 23 mmol/L (22-29); Chloride 107 mmol/L (98-107); Estimated GFR 98; Globulin 2.7 g/dL (2.4-3.5); Glucose 115 mg/dL (70-105); Potassium 4.4 mmol/L (3.5-5.1); Protein, Total 5.4 g/dL (6.0-8.3); Sodium 141 mmol/L (136-145)
[2023-02-28 06:05] LABS: HIV (1/2) Antibody/Antigen Non-Reactive (NonReactive)
[2023-02-28] MEDS ORDERED: Heparin 10,000 UNITS/ 10 ML VIAL ONE (07:07)
[2023-02-28] MEDS ORDERED: Lidocaine 1% (PF) 30 ML VIAL ONE (07:07)
[2023-02-28] MEDS ORDERED: Midazolam HCl 2 mg/2 ml Vial ONE ×2 (07:09→09:39)
[2023-02-28] MEDS ORDERED: Fentanyl 100 MCG/2 ML VIAL ONE ×2 (07:09)
[2023-02-28] MEDS ORDERED: Iopamidol 300 61% 100 ML VIAL FS ONE ×2 (08:51)
[2023-02-28] MEDS ORDERED: Activase 2 MG VIAL ONE (10:12)
[2023-02-28] MEDS ORDERED: Sterile Water 10 ML ONE (10:13)
[2023-02-28] MEDS ORDERED: Lorazepam 2 MG/ML VIAL SLOW IVP PRN (10:46)
[2023-02-28] MEDS: Diclofenac 1% 100 GM GEL TP SCH ×3 (12:47→16:15)
[2023-02-28] MEDS: Losartan 25 MG TAB PO SCH ×2 (12:47→20:47)
[2023-02-28] MEDS: Thiamine 100 MG TAB PO SCH (12:48)
[2023-02-28] MEDS: Senokot S 8.6-50 MG TAB PO SCH ×2 (12:48→20:46)
[2023-02-28] MEDS: PHOS-NAK 1 PKT PACK PO SCH ×3 (12:48→20:46)
[2023-02-28] MEDS ORDERED: Heparin 25,000 units/D5W 500 ML IVPB SCH (13:15)
[2023-02-28] MEDS ORDERED: Heparin 10,000 UNITS/ 10 ML VIAL SLOW IVP SCH (13:15)
[2023-02-28 13:40] LABS: Hemoglobin A1c 5.6 % (4.0-6.0)
[2023-02-28 14:20] LABS: Hemoglobin 7.8 g/dL (12.0-15.5); Platelet Count 215 10x3/uL (150-450)
[2023-02-28] MEDS: SODIUM CHLORIDE 0.9% CATH SCH (17:13)
[2023-02-28] MEDS: ACTIVASE CATH SCH (17:13)
[2023-02-28] MEDS ORDERED: Pantoprazole 40 MG VIAL IVP SCH ×2 (19:00→19:30)
[2023-02-28 19:19] LABS: Hemoglobin 7.7 g/dL (12.0-15.5); Platelet Count 188 10x3/uL (150-450)
[2023-02-28] MEDS: Atorvastatin Calcium 40 MG TAB PO SCH (20:45)
[2023-02-28] MEDS: traZODone HCl 50 MG TAB PO SCH (20:46)
[2023-02-28] MEDS: Folic Acid 1 MG TAB PO SCH (20:47)
[2023-03-01] MEDS: SODIUM CHLORIDE 0.9% CATH SCH (01:11)
[2023-03-01] MEDS: ACTIVASE CATH SCH (01:11)
[2023-03-01 05:13] LABS: Hep B Surface AG-Rflx Sendout Negative (Negative); Hepatitis B Core Total Negative (Negative); Hepatitis B Surface AB-Sendout Non Reactive (.)
[2023-03-01 05:15] LABS: #Eosinphils 0.1 10x3/uL (0.0-0.5); #Monocytes 0.5 10x3/uL (0.0-1.1); #Neutrophils 9.5 10x3/uL (1.5-8.4); %Basophils 0.1 % (0.0-2.0); %Eosinophils 0.8 % (0.0-6.0); %Lymphocytes 15.6 % (18.0-47.0); %Monocytes 4.3 % (0.0-10.0); %Neutrophils 78.5 % (40.0-75.0); Mean Corpuscular HGB CONC 30.7 g/dL (32.0-36.0); Mean Corpuscular Hemoglobin 32.3 pg (27.0-33.0); Mean Corpuscular Volume 105.1 fl (81.6-98.3); Platelet Count 205 10x3/uL (150-450); RBC Distribution Width 18.5 % (11.5-14.5); Red Blood Cell (RBC) Count 2.17 10x6/uL (3.90-5.03); White Blood Cell (WBC) Count 12.1 10x3/uL (3.5-10.5)
[2023-03-01 05:21] LABS: ALT (SGPT) 65 U/L (8-55); AST (SGOT) 89 U/L (5-34); Albumin 2.3 g/dL (3.5-5.0); Alkaline Phosphatase 92 U/L (40-110); Anion Gap 15 mmol/L (10-20); BUN (Urea Nitrogen) 17 mg/dL (9.8-20.1); Bilirubin, Total 1.2 mg/dL (0.2-1.2); Calc. Creatinine Clearance 124 mL/min (70-130); Calcium 8.1 mg/dL (7.8-10.44); Carbon Dioxide 21 mmol/L (22-29); Chloride 110 mmol/L (98-107); Estimated GFR 100; Globulin 2.3 g/dL (2.4-3.5); Glucose 128 mg/dL (70-105); Potassium 4.1 mmol/L (3.5-5.1); Protein, Total 4.6 g/dL (6.0-8.3); Sodium 142 mmol/L (136-145)
[2023-03-01] MEDS: Gabapentin 300 MG CAP PO SCH ×3 (05:48→20:34)
[2023-03-01] MEDS: Sodium Chloride 0.9% 1,000 ML IV SCH (05:48)
[2023-03-01] MEDS: Ferrous Sulfate 325 MG TAB PO SCH (05:48)
[2023-03-01] MEDS: Multivit, Therapeutic 1 TAB PO SCH (05:48)
[2023-03-01] MEDS: PHOS-NAK 1 PKT PACK PO SCH ×3 (05:49→20:34)
[2023-03-01] MEDS: Aspirin 81 mg Enteric Coated Tablet PO SCH (05:49)
[2023-03-01] MEDS: Thiamine 100 MG TAB PO SCH (05:49)
[2023-03-01] MEDS: Senokot S 8.6-50 MG TAB PO SCH ×2 (05:49→20:36)
[2023-03-01] MEDS: Losartan 25 MG TAB PO SCH ×2 (05:50→20:36)
[2023-03-01] MEDS: Pantoprazole 40 MG VIAL IVP SCH (06:05)
[2023-03-01] MEDS ORDERED: Heparin 10,000 UNITS/ 10 ML VIAL ONE (06:53)
[2023-03-01] MEDS ORDERED: Lidocaine 1% (PF) 30 ML VIAL ONE (06:53)
[2023-03-01] MEDS ORDERED: Fentanyl 100 MCG/2 ML VIAL ONE (06:54)
[2023-03-01] MEDS ORDERED: Midazolam HCl 2 mg/2 ml Vial ONE ×2 (06:55→08:47)
[2023-03-01] MEDS ORDERED: Sodium Chloride 0.9% 1,000 ML IV SCH (10:17)
[2023-03-01] MEDS: Morphine 2 MG/ML VIAL SLOW IVP PRN (12:30)
[2023-03-01] MEDS: Folic Acid 1 MG TAB PO SCH (20:34)
[2023-03-01] MEDS: Atorvastatin Calcium 40 MG TAB PO SCH (20:34)
[2023-03-01] MEDS: Apixaban 5 MG TAB PO SCH (20:34)
[2023-03-01] MEDS: traZODone HCl 50 MG TAB PO SCH (20:34)
[2023-03-01] MEDS ORDERED: TICAGRELOR 90 MG TABLET PO SCH (21:00)
[2023-03-02 05:11] LABS: #Eosinphils 0.1 10x3/uL (0.0-0.5); #Monocytes 1.1 10x3/uL (0.0-1.1); #Neutrophils 14.6 10x3/uL (1.5-8.4); %Basophils 0.1 % (0.0-2.0); %Eosinophils 0.7 % (0.0-6.0); %Lymphocytes 12.4 % (18.0-47.0); %Monocytes 5.8 % (0.0-10.0); %Neutrophils 80.2 % (40.0-75.0); Mean Corpuscular HGB CONC 33.2 g/dL (32.0-36.0); Mean Corpuscular Hemoglobin 30.9 pg (27.0-33.0); Mean Corpuscular Volume 93.1 fl (81.6-98.3); Mean Platelet Volume 9.7 fl (7.4-10.4); Platelet Count 230 10x3/uL (150-450); RBC Distribution Width 20.5 % (11.5-14.5); Red Blood Cell (RBC) Count 2.91 10x6/uL (3.90-5.03); White Blood Cell (WBC) Count 18.3 10x3/uL (3.5-10.5)
[2023-03-02 05:24] LABS: ALT (SGPT) 59 U/L (8-55); AST (SGOT) 90 U/L (5-34); Albumin 2.3 g/dL (3.5-5.0); Alkaline Phosphatase 93 U/L (40-110); Anion Gap 14 mmol/L (10-20); BUN (Urea Nitrogen) 18 mg/dL (9.8-20.1); Bilirubin, Total 2.6 mg/dL (0.2-1.2); Calc. Creatinine Clearance 113 mL/min (70-130); Calcium 8.1 mg/dL (7.8-10.44); Carbon Dioxide 20 mmol/L (22-29); Chloride 107 mmol/L (98-107); Estimated GFR 89; Globulin 2.2 g/dL (2.4-3.5); Glucose 167 mg/dL (70-105); Potassium 4.2 mmol/L (3.5-5.1); Protein, Total 4.5 g/dL (6.0-8.3); Sodium 137 mmol/L (136-145)
[2023-03-02 05:39] LABS: Anisocytosis SLIGHT = 6-15 cells (100X) (0-5/hpf); Hypochromia SLIGHT = 6-15 cells (100X) (0-5/hpf); Platelet Morphology Comment Appears Adequate; Polychromasia SLIGHT = 2-3 cells (100X) (0-2/hpf)
[2023-03-02 06:31] VITALS: BMI 33.4
[2023-03-02] MEDS: Senokot S 8.6-50 MG TAB PO SCH ×2 (08:26→20:37)
[2023-03-02] MEDS: Pantoprazole 40 MG VIAL IVP SCH (08:31)
[2023-03-02] MEDS: Multivit, Therapeutic 1 TAB PO SCH (08:32)
[2023-03-02] MEDS: Gabapentin 300 MG CAP PO SCH ×3 (08:32→20:41)
[2023-03-02] MEDS: Aspirin 81 mg Enteric Coated Tablet PO SCH (08:32)
[2023-03-02] MEDS: Ferrous Sulfate 325 MG TAB PO SCH (08:32)
[2023-03-02] MEDS: Losartan 25 MG TAB PO SCH ×2 (08:33→20:37)
[2023-03-02] MEDS: PHOS-NAK 1 PKT PACK PO SCH ×3 (08:33→20:41)
[2023-03-02] MEDS: Apixaban 5 MG TAB PO SCH ×2 (08:33→20:41)
[2023-03-02] MEDS: Thiamine 100 MG TAB PO SCH (08:33)
[2023-03-02] MEDS: Clopidogrel Bisulfate 75 MG TAB PO SCH (08:33)
[2023-03-02] MEDS: Nicotine 14 MG PATCH TD PRN (10:03)
[2023-03-02] MEDS ORDERED: Polyethylene Glycol 3350 17 GM Packet PO PRN (10:32)
[2023-03-02] MEDS ORDERED: Docusate 100 MG CAP PO PRN (10:32)
[2023-03-02] MEDS: Morphine 2 MG/ML VIAL SLOW IVP PRN ×3 (11:58→22:33)
[2023-03-02 13:33] LABS: Hemoglobin 8.4 g/dL (12.0-15.5); Platelet Count 210 10x3/uL (150-450)
[2023-03-02] MEDS ORDERED: PHOS-NAK 1 PKT PACK ONE (14:00)
[2023-03-02] MEDS: Folic Acid 1 MG TAB PO SCH (20:40)
[2023-03-02] MEDS: Atorvastatin Calcium 40 MG TAB PO SCH (20:40)
[2023-03-02] MEDS: traZODone HCl 50 MG TAB PO SCH (20:40)
[2023-03-03] MEDS: Morphine 2 MG/ML VIAL SLOW IVP PRN ×2 (05:15→09:04)
[2023-03-03 05:24] LABS: #Eosinphils 0.1 10x3/uL (0.0-0.5); #Neutrophils 14.8 10x3/uL (1.5-8.4); %Basophils 0.1 % (0.0-2.0); %Eosinophils 0.7 % (0.0-6.0); %Lymphocytes 12.6 % (18.0-47.0); %Monocytes 5.4 % (0.0-10.0); %Neutrophils 80.3 % (40.0-75.0); Hemoglobin 8.5 g/dL (12.0-15.5); Mean Corpuscular HGB CONC 33.3 g/dL (32.0-36.0); Mean Corpuscular Hemoglobin 31.7 pg (27.0-33.0); Mean Corpuscular Volume 95.1 fl (81.6-98.3); Mean Platelet Volume 9.9 fl (7.4-10.4); Platelet Count 243 10x3/uL (150-450); RBC Distribution Width 19.9 % (11.5-14.5); Red Blood Cell (RBC) Count 2.68 10x6/uL (3.90-5.03); White Blood Cell (WBC) Count 18.4 10x3/uL (3.5-10.5)
[2023-03-03 05:27] LABS: ALT (SGPT) 56 U/L (8-55); AST (SGOT) 91 U/L (5-34); Albumin 2.1 g/dL (3.5-5.0); Alkaline Phosphatase 90 U/L (40-110); Anion Gap 12 mmol/L (10-20); BUN (Urea Nitrogen) 22 mg/dL (9.8-20.1); Bilirubin, Total 1.7 mg/dL (0.2-1.2); Calc. Creatinine Clearance 97 mL/min (70-130); Calcium 7.7 mg/dL (7.8-10.44); Carbon Dioxide 21 mmol/L (22-29); Chloride 106 mmol/L (98-107); Estimated GFR 77; Globulin 2.5 g/dL (2.4-3.5); Glucose 197 mg/dL (70-105); Potassium 4.1 mmol/L (3.5-5.1); Protein, Total 4.6 g/dL (6.0-8.3); Sodium 135 mmol/L (136-145)
[2023-03-03] MEDS: Nicotine 14 MG PATCH TD PRN (05:32)
[2023-03-03] MEDS: Apixaban 5 MG TAB PO SCH ×2 (08:02→21:16)
[2023-03-03] MEDS: Multivit, Therapeutic 1 TAB PO SCH (08:03)
[2023-03-03] MEDS: Gabapentin 300 MG CAP PO SCH ×3 (08:03→21:15)
[2023-03-03] MEDS: Aspirin 81 mg Enteric Coated Tablet PO SCH (08:03)
[2023-03-03] MEDS: Losartan 25 MG TAB PO SCH ×2 (08:03→21:17)
[2023-03-03] MEDS: Clopidogrel Bisulfate 75 MG TAB PO SCH (08:03)
[2023-03-03] MEDS: PHOS-NAK 1 PKT PACK PO SCH ×3 (08:04→21:27)
[2023-03-03] MEDS: Ferrous Sulfate 325 MG TAB PO SCH (08:04)
[2023-03-03] MEDS: Thiamine 100 MG TAB PO SCH (08:04)
[2023-03-03] MEDS: Senokot S 8.6-50 MG TAB PO SCH ×2 (08:05→21:16)
[2023-03-03] MEDS: Atorvastatin Calcium 40 MG TAB PO SCH (21:17)
[2023-03-03] MEDS: Folic Acid 1 MG TAB PO SCH (21:17)
[2023-03-03] MEDS: traZODone HCl 50 MG TAB PO SCH ×2 (21:28→21:53)
[2023-03-04] MEDS: Morphine 2 MG/ML VIAL SLOW IVP PRN (02:34)
[2023-03-04] MEDS ORDERED: Aspirin 81 mg Enteric Coated Tablet ONE (09:20)
[2023-03-04 09:27] LABS: #Eosinphils 0.1 10x3/uL (0.0-0.5); #Monocytes 0.9 10x3/uL (0.0-1.1); #Neutrophils 12.8 10x3/uL (1.5-8.4); %Basophils 0.2 % (0.0-2.0); %Eosinophils 0.9 % (0.0-6.0); %Lymphocytes 12.3 % (18.0-47.0); %Monocytes 5.7 % (0.0-10.0); %Neutrophils 80.2 % (40.0-75.0); Hemoglobin 8.4 g/dL (12.0-15.5); Mean Corpuscular HGB CONC 33.9 g/dL (32.0-36.0); Mean Corpuscular Hemoglobin 34.3 pg (27.0-33.0); Mean Corpuscular Volume 101.2 fl (81.6-98.3); Mean Platelet Volume 9.8 fl (7.4-10.4); Platelet Count 246 10x3/uL (150-450); RBC Distribution Width 19.9 % (11.5-14.5); Red Blood Cell (RBC) Count 2.45 10x6/uL (3.90-5.03); White Blood Cell (WBC) Count 15.9 10x3/uL (3.5-10.5)
[2023-03-04] MEDS: Apixaban 5 MG TAB PO SCH ×2 (09:44→23:18)
[2023-03-04] MEDS: PHOS-NAK 1 PKT PACK PO SCH ×3 (09:46→23:19)
[2023-03-04] MEDS: Thiamine 100 MG TAB PO SCH (09:50)
[2023-03-04] MEDS: Senokot S 8.6-50 MG TAB PO SCH ×2 (09:50→23:18)
[2023-03-04] MEDS: Ferrous Sulfate 325 MG TAB PO SCH (09:52)
[2023-03-04] MEDS: Aspirin 81 mg Enteric Coated Tablet PO SCH (09:53)
[2023-03-04] MEDS: Multivit, Therapeutic 1 TAB PO SCH (09:53)
[2023-03-04] MEDS: Morphine 4 MG/ML VIAL SLOW IVP PRN (09:55)
[2023-03-04] MEDS: Gabapentin 300 MG CAP PO SCH ×3 (09:56→23:18)
[2023-03-04] MEDS: Losartan 25 MG TAB PO SCH ×2 (09:57→23:19)
[2023-03-04] MEDS: Clopidogrel Bisulfate 75 MG TAB PO SCH (09:58)
[2023-03-04] MEDS ORDERED: PHOS-NAK 1 PKT PACK ONE (14:29)
[2023-03-04] MEDS: Atorvastatin Calcium 40 MG TAB PO SCH (23:18)
[2023-03-04] MEDS: Folic Acid 1 MG TAB PO SCH (23:18)
[2023-03-04] MEDS: traZODone HCl 50 MG TAB PO SCH (23:19)
[2023-03-04] MEDS ORDERED: oxyCODONE 5 MG TAB PO SCH (23:45)
[2023-03-05] MEDS: Nicotine 14 MG PATCH TD PRN (01:02)
[2023-03-05] MEDS: Morphine 4 MG/ML VIAL SLOW IVP PRN (01:02)
[2023-03-05] MEDS: Apixaban 5 MG TAB PO SCH ×2 (09:05→20:59)
[2023-03-05] MEDS: Thiamine 100 MG TAB PO SCH (09:05)
[2023-03-05] MEDS: Gabapentin 300 MG CAP PO SCH ×3 (09:08→21:00)
[2023-03-05] MEDS: Ferrous Sulfate 325 MG TAB PO SCH (09:08)
[2023-03-05] MEDS: Aspirin 81 mg Enteric Coated Tablet PO SCH (09:09)
[2023-03-05] MEDS: PHOS-NAK 1 PKT PACK PO SCH ×3 (09:10→21:00)
[2023-03-05] MEDS: Clopidogrel Bisulfate 75 MG TAB PO SCH (09:10)
[2023-03-05] MEDS: Senokot S 8.6-50 MG TAB PO SCH (09:11)
[2023-03-05] MEDS: Losartan 25 MG TAB PO SCH ×2 (09:19→21:17)
[2023-03-05] MEDS: Multivit, Therapeutic 1 TAB PO SCH (09:20)
[2023-03-05] MEDS: HYDROcodone/Acetaminophen 5/325 mg Tablet PO PRN ×3 (11:24→20:59)
[2023-03-05 16:58] LABS: Bilirubin Neg (Negative); Blood, Urine Negative (Negative); Clarity Clear (Clear); Glucose, Urine (Dipstick) Normal (Negative); Ketone, Urine Negative (Negative); Leukocyte Negative (Negative); Nitrite Negative (Negative); Protein, Urine (Dipstick) Negative (Neg-Trace); Specific Gravity, Urine 1.015 (1.005-1.030)
[2023-03-05 17:06] LABS: CAUTI Indications for Culture Alt mental st,lethar; RBC/HPF 0-3 HPF (0-3); Squamous Epithelial 0-3 HPF (0-3); WBC/HPF 0-3 HPF (0-3)
[2023-03-05 17:07] LABS: Bacteria/HPF Rare-Few HPF (None Seen)
[2023-03-05 17:09] LABS: Urine Culture Reflex No No
[2023-03-05] MEDS: Atorvastatin Calcium 40 MG TAB PO SCH (20:59)
[2023-03-05] MEDS: Folic Acid 1 MG TAB PO SCH (20:59)
[2023-03-05] MEDS: traZODone HCl 50 MG TAB PO SCH (21:17)
[2023-03-06 04:24] LABS: #Eosinphils 0.2 10x3/uL (0.0-0.5); #Monocytes 0.9 10x3/uL (0.0-1.1); #Neutrophils 11.7 10x3/uL (1.5-8.4); %Basophils 0.3 % (0.0-2.0); %Eosinophils 1.3 % (0.0-6.0); %Lymphocytes 14.3 % (18.0-47.0); %Monocytes 6.2 % (0.0-10.0); %Neutrophils 77.1 % (40.0-75.0); Hemoglobin 7.6 g/dL (12.0-15.5); Mean Corpuscular HGB CONC 31.9 g/dL (32.0-36.0); Mean Corpuscular Hemoglobin 31.9 pg (27.0-33.0); Mean Platelet Volume 9.7 fl (7.4-10.4); Platelet Count 268 10x3/uL (150-450); RBC Distribution Width 18.5 % (11.5-14.5); Red Blood Cell (RBC) Count 2.38 10x6/uL (3.90-5.03); White Blood Cell (WBC) Count 15.1 10x3/uL (3.5-10.5)
[2023-03-06 04:44] LABS: Anion Gap 13 mmol/L (10-20); BUN (Urea Nitrogen) 19 mg/dL (9.8-20.1); Calc. Creatinine Clearance 84 mL/min (70-130); Calcium 7.7 mg/dL (7.8-10.44); Carbon Dioxide 18 mmol/L (22-29); Chloride 108 mmol/L (98-107); Estimated GFR 64; Glucose 108 mg/dL (70-105); Potassium 3.9 mmol/L (3.5-5.1); Sodium 135 mmol/L (136-145)
[2023-03-06] MEDS ORDERED: Docusate 100 MG CAP PO SCH (09:00)
[2023-03-06] MEDS ORDERED: Vancomycin 1 GM in Premix Bag 1 BAG IVPB SCH (09:00)
[2023-03-06] MEDS ORDERED: Polyethylene Glycol 3350 17 GM Packet PO PRN (09:00)
[2023-03-06] MEDS: Apixaban 5 MG TAB PO SCH ×2 (09:13→22:47)
[2023-03-06] MEDS: Thiamine 100 MG TAB PO SCH (09:13)
[2023-03-06] MEDS: Multivit, Therapeutic 1 TAB PO SCH (09:13)
[2023-03-06] MEDS: Aspirin 81 mg Enteric Coated Tablet PO SCH (09:13)
[2023-03-06] MEDS: Clopidogrel Bisulfate 75 MG TAB PO SCH (09:13)
[2023-03-06] MEDS: Losartan 25 MG TAB PO SCH ×2 (09:13→22:51)
[2023-03-06] MEDS: Ferrous Sulfate 325 MG TAB PO SCH (09:14)
[2023-03-06] MEDS: PHOS-NAK 1 PKT PACK PO SCH ×3 (09:14→22:51)
[2023-03-06] MEDS: Gabapentin 300 MG CAP PO SCH ×3 (09:14→22:50)
[2023-03-06] MEDS: HYDROcodone/Acetaminophen 5/325 mg Tablet PO PRN ×3 (09:15→19:20)
[2023-03-06] MEDS ORDERED: Cefepime 2 GM in Sodium Chloride 0.9% 100 ML IVPB SCH (09:45)
[2023-03-06] MEDS ORDERED: VANCOMYCIN 1.75 GM/350 ML BAG 1.75 GM in Premix Bag 1 BAG IVPB SCH (10:00)
[2023-03-06] MEDS ORDERED: Sodium Chloride 0.9% 500 ML IV SCH (12:15)
[2023-03-06] MEDS: traZODone HCl 50 MG TAB PO SCH (22:47)
[2023-03-06] MEDS: Atorvastatin Calcium 40 MG TAB PO SCH (22:47)
[2023-03-06] MEDS: Cefepime 2 GM in Sodium Chloride 0.9% 100 ML IVPB SCH (22:47)
[2023-03-06] MEDS: Folic Acid 1 MG TAB PO SCH (22:47)
[2023-03-07] MEDS: Vancomycin HCl 1 GM in Sodium Chloride 0.9% 250 ML 250 ML IVPB SCH ×2 (03:22→22:55)
[2023-03-07 04:26] LABS: Anion Gap 14 mmol/L (10-20); BUN (Urea Nitrogen) 20 mg/dL (9.8-20.1); Calc. Creatinine Clearance 83 mL/min (70-130); Calcium 7.7 mg/dL (7.8-10.44); Carbon Dioxide 18 mmol/L (22-29); Chloride 108 mmol/L (98-107); Estimated GFR 63; Glucose 140 mg/dL (70-105); Potassium 3.8 mmol/L (3.5-5.1); Sodium 136 mmol/L (136-145)
[2023-03-07 04:38] LABS: #Eosinphils 0.2 10x3/uL (0.0-0.5); #Monocytes 0.8 10x3/uL (0.0-1.1); #Neutrophils 11.1 10x3/uL (1.5-8.4); %Basophils 0.2 % (0.0-2.0); %Eosinophils 1.1 % (0.0-6.0); %Lymphocytes 13.8 % (18.0-47.0); %Monocytes 5.8 % (0.0-10.0); %Neutrophils 78.5 % (40.0-75.0); Hemoglobin 7.5 g/dL (12.0-15.5); Mean Corpuscular HGB CONC 32.1 g/dL (32.0-36.0); Mean Corpuscular Hemoglobin 32.9 pg (27.0-33.0); Mean Corpuscular Volume 102.6 fl (81.6-98.3); Mean Platelet Volume 9.8 fl (7.4-10.4); Platelet Count 287 10x3/uL (150-450); RBC Distribution Width 18.2 % (11.5-14.5); Red Blood Cell (RBC) Count 2.28 10x6/uL (3.90-5.03); White Blood Cell (WBC) Count 14.2 10x3/uL (3.5-10.5)
[2023-03-07 06:27] LABS: Band 8 % (5-11); Lymphocytes 2 % (21-51); Monocytes 1 % (0-10)
[2023-03-07 06:29] LABS: RBC Morph Comment NORMAL
[2023-03-07 06:33] LABS: Hypochromia SLIGHT = 6-15 cells (100X) (0-5/hpf); Macrocytosis SLIGHT = 6-15 cells (100X) (0-5/hpf)
[2023-03-07 06:34] LABS: Ovalocytes SLIGHT = 2-5 cells (100X) (0-1/hpf); Platelet Morphology Comment Appears Increased; Polychromasia SLIGHT = 2-3 cells (100X) (0-2/hpf); Schistocytes SLIGHT = 2-5 cells (100X) (0-1/hpf)
[2023-03-07 06:35] LABS: Large Platelets SLIGHT; Platelet Clumps SLIGHT
[2023-03-07] MEDS: PHOS-NAK 1 PKT PACK PO SCH ×3 (09:57→21:43)
[2023-03-07] MEDS: Multivit, Therapeutic 1 TAB PO SCH (09:58)
[2023-03-07] MEDS: HYDROcodone/Acetaminophen 5/325 mg Tablet PO PRN ×2 (09:58→23:57)
[2023-03-07] MEDS: Ferrous Sulfate 325 MG TAB PO SCH (09:59)
[2023-03-07] MEDS: Thiamine 100 MG TAB PO SCH (10:00)
[2023-03-07] MEDS: Clopidogrel Bisulfate 75 MG TAB PO SCH (10:00)
[2023-03-07] MEDS: Gabapentin 300 MG CAP PO SCH ×3 (10:00→21:44)
[2023-03-07] MEDS: Aspirin 81 mg Enteric Coated Tablet PO SCH (10:00)
[2023-03-07] MEDS: Apixaban 5 MG TAB PO SCH ×2 (10:00→21:43)
[2023-03-07] MEDS: Cefepime 2 GM in Sodium Chloride 0.9% 100 ML IVPB SCH ×2 (10:01→21:32)
[2023-03-07] MEDS: Losartan 25 MG TAB PO SCH ×2 (10:01→21:44)
[2023-03-07 21:08] LABS: Vancomycin, Trough 14.4 ug/mL
[2023-03-07] MEDS: Atorvastatin Calcium 40 MG TAB PO SCH (21:43)
[2023-03-07] MEDS: traZODone HCl 50 MG TAB PO SCH (21:44)
[2023-03-07] MEDS: Folic Acid 1 MG TAB PO SCH (21:44)
[2023-03-08] MEDS ORDERED: Haloperidol Lactate 5 MG/ML VIAL IM SCH (02:15)
[2023-03-08 10:22] LABS: ALT (SGPT) 47 U/L (8-55); AST (SGOT) 52 U/L (5-34); Albumin 1.8 g/dL (3.5-5.0); Alkaline Phosphatase 121 U/L (40-110); Anion Gap 16 mmol/L (10-20); BUN (Urea Nitrogen) 19 mg/dL (9.8-20.1); Calc. Creatinine Clearance 93 mL/min (70-130); Calcium 7.5 mg/dL (7.8-10.44); Carbon Dioxide 15 mmol/L (22-29); Chloride 110 mmol/L (98-107); Estimated GFR 73; Globulin 2.9 g/dL (2.4-3.5); Glucose 181 mg/dL (70-105); Potassium 4.5 mmol/L (3.5-5.1); Protein, Total 4.7 g/dL (6.0-8.3); Sodium 136 mmol/L (136-145)
[2023-03-08 10:36] LABS: #Eosinphils 0.2 10x3/uL (0.0-0.5); #Monocytes 0.8 10x3/uL (0.0-1.1); #Neutrophils 12.4 10x3/uL (1.5-8.4); %Basophils 0.3 % (0.0-2.0); %Eosinophils 1.2 % (0.0-6.0); %Lymphocytes 12.8 % (18.0-47.0); %Monocytes 5.2 % (0.0-10.0); %Neutrophils 79.8 % (40.0-75.0); Hemoglobin 7.5 g/dL (12.0-15.5); Mean Corpuscular HGB CONC 32.1 g/dL (32.0-36.0); Mean Corpuscular Hemoglobin 32.3 pg (27.0-33.0); Mean Corpuscular Volume 100.9 fl (81.6-98.3); Mean Platelet Volume 9.9 fl (7.4-10.4); Platelet Count 284 10x3/uL (150-450); RBC Distribution Width 18.2 % (11.5-14.5); Red Blood Cell (RBC) Count 2.32 10x6/uL (3.90-5.03); White Blood Cell (WBC) Count 15.6 10x3/uL (3.5-10.5)
[2023-03-08] MEDS: Gabapentin 300 MG CAP PO SCH ×3 (10:48→20:03)
[2023-03-08] MEDS: Apixaban 5 MG TAB PO SCH ×2 (10:48→20:02)
[2023-03-08] MEDS: Aspirin 81 mg Enteric Coated Tablet PO SCH (10:48)
[2023-03-08] MEDS: Ferrous Sulfate 325 MG TAB PO SCH (10:49)
[2023-03-08] MEDS: Clopidogrel Bisulfate 75 MG TAB PO SCH (10:49)
[2023-03-08] MEDS: Multivit, Therapeutic 1 TAB PO SCH (10:49)
[2023-03-08] MEDS: Losartan 25 MG TAB PO SCH ×3 (10:49→20:14)
[2023-03-08] MEDS: PHOS-NAK 1 PKT PACK PO SCH ×3 (10:49→20:02)
[2023-03-08] MEDS: Cefepime 2 GM in Sodium Chloride 0.9% 100 ML IVPB SCH ×2 (10:50→20:04)
[2023-03-08] MEDS: Thiamine 100 MG TAB PO SCH (10:56)
[2023-03-08] MEDS: Vancomycin HCl 1 GM in Sodium Chloride 0.9% 250 ML 250 ML IVPB SCH (16:58)
[2023-03-08] MEDS: Folic Acid 1 MG TAB PO SCH (20:02)
[2023-03-08] MEDS: Atorvastatin Calcium 40 MG TAB PO SCH (20:03)
[2023-03-08] MEDS: traZODone HCl 50 MG TAB PO SCH (20:03)
[2023-03-09 08:54] LABS: Vancomycin, Trough 11.9 ug/mL
[2023-03-09] MEDS: PHOS-NAK 1 PKT PACK PO SCH ×3 (09:00→22:18)
[2023-03-09] MEDS: Cefepime 2 GM in Sodium Chloride 0.9% 100 ML IVPB SCH ×2 (09:01→22:00)
[2023-03-09] MEDS: Vancomycin HCl 1 GM in Sodium Chloride 0.9% 250 ML 250 ML IVPB SCH (09:02)
[2023-03-09] MEDS: Losartan 25 MG TAB PO SCH ×3 (09:04→22:18)
[2023-03-09] MEDS: Apixaban 5 MG TAB PO SCH ×2 (09:04→22:18)
[2023-03-09] MEDS: Gabapentin 300 MG CAP PO SCH (09:04)
[2023-03-09] MEDS: Multivit, Therapeutic 1 TAB PO SCH (09:04)
[2023-03-09] MEDS: Thiamine 100 MG TAB PO SCH (09:05)
[2023-03-09] MEDS: Aspirin 81 mg Enteric Coated Tablet PO SCH (09:05)
[2023-03-09] MEDS: Clopidogrel Bisulfate 75 MG TAB PO SCH (09:05)
[2023-03-09] MEDS: Ferrous Sulfate 325 MG TAB PO SCH (09:05)
[2023-03-09 13:23] LABS: #Eosinphils 0.1 10x3/uL (0.0-0.5); #Monocytes 0.6 10x3/uL (0.0-1.1); #Neutrophils 6.7 10x3/uL (1.5-8.4); %Basophils 0.2 % (0.0-2.0); %Eosinophils 1.1 % (0.0-6.0); %Lymphocytes 17.8 % (18.0-47.0); %Monocytes 6.9 % (0.0-10.0); %Neutrophils 73.6 % (40.0-75.0); Hemoglobin 7.6 g/dL (12.0-15.5); Mean Corpuscular HGB CONC 30.3 g/dL (32.0-36.0); Mean Corpuscular Hemoglobin 30.5 pg (27.0-33.0); Mean Corpuscular Volume 100.8 fl (81.6-98.3); Mean Platelet Volume 9.3 fl (7.4-10.4); Platelet Count 298 10x3/uL (150-450); RBC Distribution Width 18.1 % (11.5-14.5); Red Blood Cell (RBC) Count 2.49 10x6/uL (3.90-5.03); White Blood Cell (WBC) Count 9.2 10x3/uL (3.5-10.5)
[2023-03-09 13:35] LABS: ALT (SGPT) 39 U/L (8-55); AST (SGOT) 39 U/L (5-34); Albumin 1.8 g/dL (3.5-5.0); Alkaline Phosphatase 116 U/L (40-110); Anion Gap 12 mmol/L (10-20); BUN (Urea Nitrogen) 15 mg/dL (9.8-20.1); Bilirubin, Total 1.1 mg/dL (0.2-1.2); Calc. Creatinine Clearance 101 mL/min (70-130); Carbon Dioxide 19 mmol/L (22-29); Chloride 110 mmol/L (98-107); Estimated GFR 80; Globulin 3.2 g/dL (2.4-3.5); Glucose 148 mg/dL (70-105); Potassium 4.5 mmol/L (3.5-5.1); Sodium 136 mmol/L (136-145)
[2023-03-09] MEDS: Gabapentin 100 MG CAP PO SCH ×2 (16:14→22:17)
[2023-03-09] MEDS: Sodium Bicarbonate Tab 325 MG TAB PO SCH ×2 (16:15→22:18)
[2023-03-09] MEDS: Folic Acid 1 MG TAB PO SCH (22:18)
[2023-03-09] MEDS: Atorvastatin Calcium 40 MG TAB PO SCH (22:18)
[2023-03-09] MEDS: traZODone HCl 50 MG TAB PO SCH (22:18)
[2023-03-10] MEDS: Vancomycin HCl 1 GM in Sodium Chloride 0.9% 250 ML 250 ML IVPB SCH (04:25)
[2023-03-10 06:27] LABS: #Eosinphils 0.1 10x3/uL (0.0-0.5); #Monocytes 0.6 10x3/uL (0.0-1.1); #Neutrophils 5.9 10x3/uL (1.5-8.4); %Basophils 0.2 % (0.0-2.0); %Eosinophils 1.4 % (0.0-6.0); %Monocytes 7.1 % (0.0-10.0); %Neutrophils 68.5 % (40.0-75.0); Hemoglobin 6.9 g/dL (12.0-15.5); Mean Corpuscular HGB CONC 31.8 g/dL (32.0-36.0); Mean Corpuscular Hemoglobin 32.4 pg (27.0-33.0); Mean Corpuscular Volume 101.9 fl (81.6-98.3); Mean Platelet Volume 9.3 fl (7.4-10.4); Platelet Count 275 10x3/uL (150-450); RBC Distribution Width 18.2 % (11.5-14.5); Red Blood Cell (RBC) Count 2.13 10x6/uL (3.90-5.03); White Blood Cell (WBC) Count 8.6 10x3/uL (3.5-10.5)
[2023-03-10 06:44] LABS: ALT (SGPT) 38 U/L (8-55); AST (SGOT) 35 U/L (5-34); Albumin 1.6 g/dL (3.5-5.0); Alkaline Phosphatase 121 U/L (40-110); Anion Gap 12 mmol/L (10-20); BUN (Urea Nitrogen) 17 mg/dL (9.8-20.1); Bilirubin, Total 0.9 mg/dL (0.2-1.2); Calc. Creatinine Clearance 104 mL/min (70-130); Calcium 7.8 mg/dL (7.8-10.44); Carbon Dioxide 20 mmol/L (22-29); Chloride 110 mmol/L (98-107); Estimated GFR 84; Glucose 111 mg/dL (70-105); Protein, Total 4.6 g/dL (6.0-8.3); Sodium 138 mmol/L (136-145)
[2023-03-10] MEDS: Apixaban 5 MG TAB PO SCH ×2 (09:23→21:42)
[2023-03-10] MEDS: Gabapentin 100 MG CAP PO SCH ×3 (09:24→21:42)
[2023-03-10] MEDS: PHOS-NAK 1 PKT PACK PO SCH ×3 (09:24→21:42)
[2023-03-10] MEDS: Multivit, Therapeutic 1 TAB PO SCH (09:24)
[2023-03-10] MEDS: Ferrous Sulfate 325 MG TAB PO SCH (09:24)
[2023-03-10] MEDS: Clopidogrel Bisulfate 75 MG TAB PO SCH (09:25)
[2023-03-10] MEDS: Aspirin 81 mg Enteric Coated Tablet PO SCH (09:25)
[2023-03-10] MEDS: Thiamine 100 MG TAB PO SCH (09:25)
[2023-03-10] MEDS: Losartan 25 MG TAB PO SCH ×2 (09:26→21:43)
[2023-03-10] MEDS: Sodium Bicarbonate Tab 325 MG TAB PO SCH ×3 (09:26→21:41)
[2023-03-10] MEDS: Cefepime 2 GM in Sodium Chloride 0.9% 100 ML IVPB SCH ×2 (13:00→21:43)
[2023-03-10] MEDS: HYDROcodone/Acetaminophen 5/325 mg Tablet PO PRN ×2 (13:01→22:05)
[2023-03-10] MEDS: Thiamine HCl 500 MG, Admixture Fee 1 EACH in Sodium Chloride 0.9% 50 ML IVPB SCH ×2 (15:35→22:06)
[2023-03-10 16:20] LABS: Hemoglobin 8.4 g/dL (12.0-15.5); Platelet Count 293 10x3/uL (150-450)
[2023-03-10 16:36] LABS: CRP (Inflammatory) 11.85 mg/dL (= or < 0.5); Phosphorus 3.7 mg/dL (2.3-4.7)
[2023-03-10 16:55] LABS: INR-International Normal Ratio 1.4; PTT 44.3 sec (22.0-33.0); Prothrombin Time 15.3 sec (9.5-12.1)
[2023-03-10] MEDS: Atorvastatin Calcium 40 MG TAB PO SCH (21:41)
[2023-03-10] MEDS: Folic Acid 1 MG TAB PO SCH (21:42)
[2023-03-10] MEDS: traZODone HCl 50 MG TAB PO SCH (21:42)
[2023-03-10 22:37] LABS: Vancomycin, Trough 19.5 ug/mL
[2023-03-11] MEDS ORDERED: Vancomycin HCl 750 MG in Sodium Chloride 0.9% 250 ML 250 ML IVPB SCH (02:00)
[2023-03-11] MEDS: Vancomycin HCl 1 GM in Sodium Chloride 0.9% 250 ML 250 ML IVPB SCH (03:28)
[2023-03-11 05:26] LABS: #Eosinphils 0.1 10x3/uL (0.0-0.5); #Monocytes 0.7 10x3/uL (0.0-1.1); #Neutrophils 6.5 10x3/uL (1.5-8.4); %Basophils 0.2 % (0.0-2.0); %Eosinophils 1.3 % (0.0-6.0); %Lymphocytes 22.3 % (18.0-47.0); %Monocytes 7.8 % (0.0-10.0); %Neutrophils 67.8 % (40.0-75.0); Hemoglobin 8.9 g/dL (12.0-15.5); Mean Corpuscular HGB CONC 31.7 g/dL (32.0-36.0); Mean Corpuscular Hemoglobin 31.2 pg (27.0-33.0); Mean Corpuscular Volume 98.6 fl (81.6-98.3); Mean Platelet Volume 9.2 fl (7.4-10.4); Platelet Count 277 10x3/uL (150-450); RBC Distribution Width 17.3 % (11.5-14.5); Red Blood Cell (RBC) Count 2.85 10x6/uL (3.90-5.03); White Blood Cell (WBC) Count 9.5 10x3/uL (3.5-10.5)
[2023-03-11 05:27] LABS: ALT (SGPT) 37 U/L (8-55); AST (SGOT) 44 U/L (5-34); Albumin 1.9 g/dL (3.5-5.0); Alkaline Phosphatase 150 U/L (40-110); Anion Gap 13 mmol/L (10-20); BUN (Urea Nitrogen) 17 mg/dL (9.8-20.1); Bilirubin, Total 1.4 mg/dL (0.2-1.2); Calc. Creatinine Clearance 106 mL/min (70-130); Carbon Dioxide 19 mmol/L (22-29); Chloride 111 mmol/L (98-107); Estimated GFR 85; Globulin 3.5 g/dL (2.4-3.5); Glucose 119 mg/dL (70-105); Potassium 4.1 mmol/L (3.5-5.1); Protein, Total 5.4 g/dL (6.0-8.3); Sodium 139 mmol/L (136-145)
[2023-03-11] MEDS: Ferrous Sulfate 325 MG TAB PO SCH (10:16)
[2023-03-11] MEDS: Apixaban 5 MG TAB PO SCH ×2 (10:17→20:56)
[2023-03-11] MEDS: Aspirin 81 mg Enteric Coated Tablet PO SCH (10:17)
[2023-03-11] MEDS: Gabapentin 100 MG CAP PO SCH ×3 (10:17→21:01)
[2023-03-11] MEDS: Multivit, Therapeutic 1 TAB PO SCH (10:18)
[2023-03-11] MEDS: Sodium Bicarbonate Tab 325 MG TAB PO SCH ×3 (10:18→21:00)
[2023-03-11] MEDS: Clopidogrel Bisulfate 75 MG TAB PO SCH (10:18)
[2023-03-11] MEDS: Losartan 25 MG TAB PO SCH ×2 (10:18→20:59)
[2023-03-11] MEDS: PHOS-NAK 1 PKT PACK PO SCH ×3 (10:19→21:04)
[2023-03-11] MEDS: Thiamine HCl 500 MG, Admixture Fee 1 EACH in Sodium Chloride 0.9% 50 ML IVPB SCH (11:46)
[2023-03-11 13:18] LABS: Syphilis Antibody INDETERMINATE (Nonreactive); Syphilis Antibody Index 20.11 S/CO (<1.00 Non-Reactive)
[2023-03-11] MEDS: Thiamine 100 MG TAB PO SCH ×2 (16:19→20:58)
[2023-03-11] MEDS: HYDROcodone/Acetaminophen 5/325 mg Tablet PO PRN (20:56)
[2023-03-11] MEDS: Folic Acid 1 MG TAB PO SCH (20:59)
[2023-03-11] MEDS: QUEtiapine 25 MG TAB PO SCH (21:00)
[2023-03-11] MEDS: Atorvastatin Calcium 40 MG TAB PO SCH (21:01)
[2023-03-11] MEDS: traZODone HCl 50 MG TAB PO SCH (21:02)
[2023-03-12 05:26] LABS: #Eosinphils 0.1 10x3/uL (0.0-0.5); #Monocytes 0.7 10x3/uL (0.0-1.1); #Neutrophils 5.2 10x3/uL (1.5-8.4); %Basophils 0.1 % (0.0-2.0); %Eosinophils 1.2 % (0.0-6.0); %Lymphocytes 23.9 % (18.0-47.0); %Monocytes 8.6 % (0.0-10.0); %Neutrophils 65.5 % (40.0-75.0); Mean Platelet Volume 9.8 fl (7.4-10.4); Platelet Count 246 10x3/uL (150-450); RBC Distribution Width 17.6 % (11.5-14.5)
[2023-03-12 05:35] LABS: ALT (SGPT) 33 U/L (8-55); AST (SGOT) 40 U/L (5-34); Albumin 1.6 g/dL (3.5-5.0); Alkaline Phosphatase 128 U/L (40-110); Anion Gap 13 mmol/L (10-20); BUN (Urea Nitrogen) 16 mg/dL (9.8-20.1); Bilirubin, Total 0.9 mg/dL (0.2-1.2); Calc. Creatinine Clearance 108 mL/min (70-130); Carbon Dioxide 19 mmol/L (22-29); Chloride 111 mmol/L (98-107); Estimated GFR 87; Globulin 3.1 g/dL (2.4-3.5); Glucose 139 mg/dL (70-105); Potassium 4.4 mmol/L (3.5-5.1); Protein, Total 4.7 g/dL (6.0-8.3); Sodium 139 mmol/L (136-145)
[2023-03-12] MEDS: PHOS-NAK 1 PKT PACK PO SCH ×3 (09:46→20:25)
[2023-03-12] MEDS: Thiamine 100 MG TAB PO SCH ×2 (09:46→15:58)
[2023-03-12] MEDS: Gabapentin 100 MG CAP PO SCH ×3 (09:46→20:24)
[2023-03-12] MEDS: Apixaban 5 MG TAB PO SCH ×2 (09:46→20:23)
[2023-03-12] MEDS: Ferrous Sulfate 325 MG TAB PO SCH (09:47)
[2023-03-12] MEDS: Multivit, Therapeutic 1 TAB PO SCH (09:47)
[2023-03-12] MEDS: Aspirin 81 mg Enteric Coated Tablet PO SCH (09:47)
[2023-03-12] MEDS: Sodium Bicarbonate Tab 325 MG TAB PO SCH ×3 (09:47→20:22)
[2023-03-12] MEDS: Clopidogrel Bisulfate 75 MG TAB PO SCH (09:47)
[2023-03-12] MEDS: Losartan 25 MG TAB PO SCH ×2 (09:47→20:23)
[2023-03-12] MEDS ORDERED: Thiamine HCl 250 MG, Admixture Fee 1 EACH in Sodium Chloride 0.9% 50 ML IVPB SCH (15:00)
[2023-03-12] MEDS: HYDROcodone/Acetaminophen 5/325 mg Tablet PO PRN (17:22)
[2023-03-12] MEDS: Folic Acid 1 MG TAB PO SCH (20:23)
[2023-03-12] MEDS: Atorvastatin Calcium 40 MG TAB PO SCH (20:23)
[2023-03-12] MEDS: traZODone HCl 50 MG TAB PO SCH (20:24)
[2023-03-12] MEDS: QUEtiapine 25 MG TAB PO SCH (20:24)
[2023-03-13 04:31] LABS: #Eosinphils 0.1 10x3/uL (0.0-0.5); #Monocytes 0.7 10x3/uL (0.0-1.1); #Neutrophils 5.7 10x3/uL (1.5-8.4); %Basophils 0.1 % (0.0-2.0); %Lymphocytes 24.1 % (18.0-47.0); %Monocytes 7.9 % (0.0-10.0); %Neutrophils 66.3 % (40.0-75.0); Mean Corpuscular HGB CONC 31.4 g/dL (32.0-36.0); Mean Corpuscular Hemoglobin 31.6 pg (27.0-33.0); Mean Corpuscular Volume 100.8 fl (81.6-98.3); Mean Platelet Volume 9.4 fl (7.4-10.4); Platelet Count 259 10x3/uL (150-450); RBC Distribution Width 18.1 % (11.5-14.5); Red Blood Cell (RBC) Count 2.53 10x6/uL (3.90-5.03); White Blood Cell (WBC) Count 8.6 10x3/uL (3.5-10.5)
[2023-03-13 04:38] LABS: ALT (SGPT) 30 U/L (8-55); AST (SGOT) 37 U/L (5-34); Albumin 1.7 g/dL (3.5-5.0); Alkaline Phosphatase 134 U/L (40-110); Anion Gap 14 mmol/L (10-20); BUN (Urea Nitrogen) 17 mg/dL (9.8-20.1); Bilirubin, Total 0.7 mg/dL (0.2-1.2); Calc. Creatinine Clearance 101 mL/min (70-130); Carbon Dioxide 22 mmol/L (22-29); Chloride 110 mmol/L (98-107); Estimated GFR 80; Globulin 3.3 g/dL (2.4-3.5); Glucose 102 mg/dL (70-105); Potassium 4.5 mmol/L (3.5-5.1); Sodium 141 mmol/L (136-145)
[2023-03-13] MEDS: Aspirin 81 mg Enteric Coated Tablet PO SCH (10:00)
[2023-03-13] MEDS: PHOS-NAK 1 PKT PACK PO SCH ×3 (10:00→21:14)
[2023-03-13] MEDS: Ferrous Sulfate 325 MG TAB PO SCH (10:01)
[2023-03-13] MEDS: Losartan 25 MG TAB PO SCH ×2 (10:01→21:15)
[2023-03-13] MEDS: Clopidogrel Bisulfate 75 MG TAB PO SCH (10:01)
[2023-03-13] MEDS: Gabapentin 100 MG CAP PO SCH ×3 (10:01→21:15)
[2023-03-13] MEDS: Sodium Bicarbonate Tab 325 MG TAB PO SCH ×3 (10:01→21:14)
[2023-03-13] MEDS: Multivit, Therapeutic 1 TAB PO SCH (10:02)
[2023-03-13] MEDS: Apixaban 5 MG TAB PO SCH ×2 (10:02→21:15)
[2023-03-13] MEDS: HYDROcodone/Acetaminophen 5/325 mg Tablet PO PRN (11:38)
[2023-03-13] MEDS: Thiamine 100 MG TAB PO SCH (16:37)
[2023-03-13] MEDS: traZODone HCl 50 MG TAB PO SCH (21:15)
[2023-03-13] MEDS: Atorvastatin Calcium 40 MG TAB PO SCH (21:15)
[2023-03-13] MEDS: QUEtiapine 25 MG TAB PO SCH (21:15)
[2023-03-13] MEDS: Folic Acid 1 MG TAB PO SCH (21:15)
[2023-03-14 05:27] LABS: #Eosinphils 0.1 10x3/uL (0.0-0.5); #Monocytes 0.7 10x3/uL (0.0-1.1); #Neutrophils 5.3 10x3/uL (1.5-8.4); %Basophils 0.2 % (0.0-2.0); %Lymphocytes 26.9 % (18.0-47.0); %Monocytes 8.4 % (0.0-10.0); %Neutrophils 62.9 % (40.0-75.0); Hemoglobin 8.4 g/dL (12.0-15.5); Mean Corpuscular Hemoglobin 31.7 pg (27.0-33.0); Mean Corpuscular Volume 102.3 fl (81.6-98.3); Mean Platelet Volume 9.3 fl (7.4-10.4); Platelet Count 235 10x3/uL (150-450); RBC Distribution Width 18.7 % (11.5-14.5); Red Blood Cell (RBC) Count 2.65 10x6/uL (3.90-5.03); White Blood Cell (WBC) Count 8.4 10x3/uL (3.5-10.5)
[2023-03-14 05:50] LABS: ALT (SGPT) 26 U/L (8-55); AST (SGOT) 24 U/L (5-34); Albumin 1.7 g/dL (3.5-5.0); Alkaline Phosphatase 130 U/L (40-110); Anion Gap 10 mmol/L (10-20); BUN (Urea Nitrogen) 20 mg/dL (9.8-20.1); Bilirubin, Total 0.9 mg/dL (0.2-1.2); Calc. Creatinine Clearance 99 mL/min (70-130); Calcium 7.9 mg/dL (7.8-10.44); Carbon Dioxide 24 mmol/L (22-29); Chloride 112 mmol/L (98-107); Estimated GFR 79; Globulin 3.2 g/dL (2.4-3.5); Glucose 115 mg/dL (70-105); Potassium 4.2 mmol/L (3.5-5.1); Protein, Total 4.9 g/dL (6.0-8.3); Sodium 142 mmol/L (136-145)
[2023-03-14] MEDS: Losartan 25 MG TAB PO SCH (09:35)
[2023-03-14] MEDS: Aspirin 81 mg Enteric Coated Tablet PO SCH (09:38)
[2023-03-14] MEDS: Gabapentin 100 MG CAP PO SCH ×2 (09:39→16:25)
[2023-03-14] MEDS: Clopidogrel Bisulfate 75 MG TAB PO SCH (09:41)
[2023-03-14] MEDS: Apixaban 5 MG TAB PO SCH (09:41)
[2023-03-14] MEDS: Multivit, Therapeutic 1 TAB PO SCH (09:49)
[2023-03-14] MEDS: Ferrous Sulfate 325 MG TAB PO SCH (10:10)
[2023-03-14] MEDS: PHOS-NAK 1 PKT PACK PO SCH ×2 (10:45→16:40)
[2023-03-14] MEDS: Sodium Bicarbonate Tab 325 MG TAB PO SCH ×2 (11:17→16:24)
[2023-03-14 12:09] VITALS: BP 102/71; TEMP 98.2
[2023-03-14] MEDS: Thiamine 100 MG TAB PO SCH (16:24)
[2023-03-14] MEDS: HYDROcodone/Acetaminophen 5/325 mg Tablet PO PRN (17:20)
[2023-03-17] MEDS ORDERED: Thiamine 100 MG TAB PO SCH (09:00)
== END 2023-03-14 17:35 | DRG 271 ==
LOC: SUATTDRO 08:10 → CSHERS 08:10 → CSHERHOLD 15:27 → INTOOBSV 15:27 → CSHTELE 16:27 → OBSVTOIN 02-23 09:53 → CSHIMCU 02-28 12:24 → CSHTELE 03-03 20:21
PROVIDERS: ADMIT Internal Medicine; ATTEND Family Medicine
PROC: 04CD3ZZ Extirpation of Matter from Left Common Iliac Artery, Percutaneous Approach (ICD-10-PCS; principal; 2023-02-28)
PROC: 04CJ3ZZ Extirpation of Matter from Left External Iliac Artery, Percutaneous Approach (ICD-10-PCS; 2023-02-28)
PROC: 04CL3ZZ Extirpation of Matter from Left Femoral Artery, Percutaneous Approach (ICD-10-PCS; 2023-02-28)
PROC: 047D3ZZ Dilation of Left Common Iliac Artery, Percutaneous Approach (ICD-10-PCS; 2023-02-28)
PROC: 047J3ZZ Dilation of Left External Iliac Artery, Percutaneous Approach (ICD-10-PCS; 2023-02-28)
PROC: 047L3ZZ Dilation of Left Femoral Artery, Percutaneous Approach (ICD-10-PCS; 2023-02-28)
PROC: 047N3ZZ Dilation of Left Popliteal Artery, Percutaneous Approach (ICD-10-PCS; 2023-02-28)
PROC: 047S3ZZ Dilation of Left Posterior Tibial Artery, Percutaneous Approach (ICD-10-PCS; 2023-02-28)
PROC: 047U3ZZ Dilation of Left Peroneal Artery, Percutaneous Approach (ICD-10-PCS; 2023-02-28)
PROC: 3E05317 Introduction of Other Thrombolytic into Peripheral Artery, Percutaneous Approach (ICD-10-PCS; 2023-02-28)
PROC: B41D1ZZ Fluoroscopy of Aorta and Bilateral Lower Extremity Arteries using Low Osmolar Contrast (ICD-10-PCS; 2023-02-28)
PROC: B4101ZZ Fluoroscopy of Abdominal Aorta using Low Osmolar Contrast (ICD-10-PCS; 2023-02-28)
PROC: B41J1ZZ Fluoroscopy of Other Lower Arteries using Low Osmolar Contrast (ICD-10-PCS; 2023-02-28)
PROC: B41G1ZZ Fluoroscopy of Left Lower Extremity Arteries using Low Osmolar Contrast (ICD-10-PCS; 2023-02-28)
PROC: 04CD3ZZ Extirpation of Matter from Left Common Iliac Artery, Percutaneous Approach (ICD-10-PCS; 2023-03-01)
PROC: 04CJ3ZZ Extirpation of Matter from Left External Iliac Artery, Percutaneous Approach (ICD-10-PCS; 2023-03-01)
PROC: 04CL3ZZ Extirpation of Matter from Left Femoral Artery, Percutaneous Approach (ICD-10-PCS; 2023-03-01)
PROC: 04CN3ZZ Extirpation of Matter from Left Popliteal Artery, Percutaneous Approach (ICD-10-PCS; 2023-03-01)
PROC: 04CU3ZZ Extirpation of Matter from Left Peroneal Artery, Percutaneous Approach (ICD-10-PCS; 2023-03-01)
PROC: 04CS3ZZ Extirpation of Matter from Left Posterior Tibial Artery, Percutaneous Approach (ICD-10-PCS; 2023-03-01)
PROC: 047D3ZZ Dilation of Left Common Iliac Artery, Percutaneous Approach (ICD-10-PCS; 2023-03-01)
PROC: 047J3ZZ Dilation of Left External Iliac Artery, Percutaneous Approach (ICD-10-PCS; 2023-03-01)
PROC: 047L3ZZ Dilation of Left Femoral Artery, Percutaneous Approach (ICD-10-PCS; 2023-03-01)
PROC: B41G1ZZ Fluoroscopy of Left Lower Extremity Arteries using Low Osmolar Contrast (ICD-10-PCS; 2023-03-01)
PROC: B41J1ZZ Fluoroscopy of Other Lower Arteries using Low Osmolar Contrast (ICD-10-PCS; 2023-03-01)
PROC: 30233N1 Transfusion of Nonautologous Red Blood Cells into Peripheral Vein, Percutaneous Approach (ICD-10-PCS; 2023-03-10)
DX: E11.51 Type 2 diabetes mellitus with diabetic peripheral angiopathy without gangrene (principal); E87.20 Acidosis, unspecified; L03.116 Cellulitis of left lower limb; I74.5 Embolism and thrombosis of iliac artery; I74.3 Embolism and thrombosis of arteries of the lower extremities; I82.412 Acute embolism and thrombosis of left femoral vein; J44.9 Chronic obstructive pulmonary disease, unspecified; G89.29 Other chronic pain; M19.90 Unspecified osteoarthritis, unspecified site; M48.00 Spinal stenosis, site unspecified; D64.9 Anemia, unspecified; F10.10 Alcohol abuse, uncomplicated; F17.210 Nicotine dependence, cigarettes, uncomplicated; E87.6 Hypokalemia; I10 Essential (primary) hypertension; I70.222 Atherosclerosis of native arteries of extremities with rest pain, left leg; E66.01 Morbid (severe) obesity due to excess calories; G31.2 Degeneration of nervous system due to alcohol; Z98.890 Other specified postprocedural states; Z88.0 Allergy status to penicillin; Z79.84 Long term (current) use of oral hypoglycemic drugs; Z68.33 Body mass index [BMI] 33.0-33.9, adult; Z79.899 Other long term (current) drug therapy
CPT/HCPCS: 36415; 36430; 37184; 37185; 37186; 37211; 37214; 37220; 37222; 37224; 37228; 70450; 70551; 71250; 71275; 74174; 74177; 75710; 75736; 75774; 75898; 80048; 80053; 80061; 80202; 80307; 81001; 82140; 82533; 83036; 83735; 84100; 84145; 84443; 85014; 85018; 85025; 85046; 85049; 85347; 85384; 85610; 85730; 86140; 86593; 86704; 86706; 86780; 86803; 86850; 86900; 86901; 87340; 87389; 93005; 93010; 94760; 94762; 96361; 96374; 96375; 97139; 99152; 99153; C1725; C1751; C1757; C1769; C1887; C1894; C9113; G0378; J0692; J1100; J1630; J1644; J1650; J1885; J2001; J2250; J2270; J2272; J2997; J3010; J3370; J3411; J3475; J3490; J7030; J7050; J7120; J8540; P9016; Q9967